=== PATIENT | female | born 1970 | race Caucasian/White ===

== ENCOUNTER → 2018-05-13 15:49 | Outpatient (CLI) | payer OTHER, MEDICAID, SELFPAY ==
--- NOTE | 2018-05-13 | DI.US.S_ITS ---
PROCEDURE: US RENAL COMPLETE INDICATIONS: FAMILY HISTORY POLYCYSTIC KIDNEY TECHNIQUE: Real-time scanning was performed of the kidneys and bladder, with image documentation. COMPARISON: None. FINDINGS: Kidneys: Kidneys are moderately increased in size. Right kidney measures 12.7 cm long; left kidney measures 13.6 cm long. Right renal cortical thickness is 1.5 cm; left renal cortical thickness is 1.5 cm. Renal cortical echotexture is normal. No hydronephrosis or nephrolithiasis but there are numerous cysts involving the renal cortex bilaterally, the largest of which measures up to 12.4 cm on the right and 4.8 cm on the left.. No suspicious solid mass lesions. Bladder: Pre-void bladder volume is 35 mL. Post-void residual is 0 mL. Pre-void images demonstrate no intraluminal masses or stones. On pre-void images, bilateral ureteral jets are noted with color Doppler interrogation. (Of note, ureteral jets may not be detectable in up to 25% of cases due to insufficient differences in specific gravity between ureteral and bladder urine). Miscellaneous: No free pelvic fluid. IMPRESSION: Numerous renal cortical cysts are present involving the cortex of each kidney, enlarging the kidneys bilaterally as discussed above. The bladder was not fully distended for this examination, normal bladder function was seen. Dictated by: Vic Rahman M.D. on 05/13/2018 at 17:19 Approved by: Vic Rahman M.D. on 05/13/2018 at 17:21
== END ==
PROVIDERS: PCP Physician Assistant; Visit Provider Physician Assistant
DX: N28.1 Cyst of kidney, acquired (principal); Z82.71 Family history of polycystic kidney; N28.81 Hypertrophy of kidney
CPT/HCPCS: 76770

== ENCOUNTER → 2019-04-21 13:50 | Outpatient (CLI) | payer OTHER, MEDICAID, SELFPAY ==
[2019-04-21 14:59] LABS: BUN Creatinine Ratio 15.6 (6-22); Blood Urea Nitrogen 14 mg/dL (7-17); Calcium 8.7 mg/dL (8.4-10.2); Carbon Dioxide 27 mmol/L (22-32); Chloride 102 mmol/L (98-107); Cholesterol 172 mg/dL (140-199); Estimated Glomerular Filt Rate > 60.0 mL/min (>60); Glucose 107 mg/dL (70-100); HDL Cholesterol 42 mg/dL (40-60); HEMOLYSIS < 15 (0-50); LDL Cholesterol Calculated 105 mg/dL (<100); Potassium 3.7 mmol/L (3.4-5.1); Sodium 139 mmol/L (137-145); Triglycerides 124 mg/dL (35-150)
[2019-04-21 15:11] LABS: Add Manual Diff / Slide Review NO; Basophils Absolute Auto 100 /uL (0-100); Eosinophils Absolute Auto 100 /uL (0-450); Eosinophils Percent Auto 1.2 % (2-4); Hematocrit 38.3 % (36-46); Hemoglobin 12.6 g/dL (12.0-16.0); Lymphocytes Absolute Auto 1200 /uL (1100-4500); Lymphocytes Percent Auto 20.4 % (25-40); Mean Corpuscular HGB Conc 32.8 % (30-36); Mean Corpuscular Hemoglobin 27.5 PG (26-34); Mean Corpuscular Volume 83.7 fL (80-100); Monocytes Absolute Auto 200 /uL (0-900); Neutrophils Absolute Auto 4300 /uL (1500-7000); Neutrophils Percent Auto 73.4 % (50-75); Platelet Count 288 X10^3/uL (150-400); Red Blood Cell Count 4.58 X10^6/uL (4.0-5.2); Red Cell Distribution Width 14.1 % (11.6-14.8); White Blood Cell Count 5.8 X10^3/uL (4.5-11.0)
[2019-04-21 15:31] LABS: Ferritin 6.3 ng/mL (6.27-137)
[2019-04-21 15:45] LABS: Vitamin B12 187 pg/mL (239-931)
[2019-04-21 16:45] LABS: Iron 66 ug/dL (37-170)
[2019-04-21 16:55] LABS: Percent Iron Saturation 12 % (15-50); Total Iron Binding Capacity 545 ug/dL (265-497)
[2019-04-21 16:58] LABS: Creatinine Urine Random 82.2 mg/dL; Protein (Total) Urine Random 8 mg/dL (0-12); Protein Creatinine Ratio Urine 0.09 GRAM/24H
[2019-04-21 17:03] LABS: Vitamin D 25 Hydroxy (D3) 14.1 ng/mL (30.0-100.0)
[2019-04-21 17:18] LABS: TSH w/ Reflex to FT4 1.89 uIU/mL (0.47-4.68)
[2019-04-24 15:31] LABS: Parathyroid Hormone Int 21 pg/mL (14-64)
[2019-04-28 09:59] LABS: Vitamin B1 14
== END ==
PROVIDERS: PCP Physician Assistant; Referring Provider Student in an Organized Health Care Education/Training Program; Visit Provider Student in an Organized Health Care Education/Training Program
DX: I10 Essential (primary) hypertension (principal); L65.9 Nonscarring hair loss, unspecified; E55.9 Vitamin D deficiency, unspecified; D50.8 Other iron deficiency anemias; N05.9 Unspecified nephritic syndrome with unspecified morphologic changes; D70.9 Neutropenia, unspecified; D63.1 Anemia in chronic kidney disease; R80.9 Proteinuria, unspecified; D50.0 Iron deficiency anemia secondary to blood loss (chronic)
CPT/HCPCS: 36415; 80048; 80061; 82306; 82570; 82607; 82728; 83540; 83550; 83970; 84156; 84207; 84425; 84443; 85025

== ENCOUNTER → 2019-05-07 09:54 | Outpatient (CLI) | payer OTHER, MEDICAID, SELFPAY ==
--- NOTE | 2019-05-07 09:58 | DI.CT.S_ITS ---
PROCEDURE: CT ANGIO HEAD INDICATIONS: Polycystic kidney, unspecified TECHNIQUE: Precontrast 4.5 mm thick angled axial sections acquired from the foramen magnum to the vertex. After the administration of intravenous contrast, 1 mm thick sections acquired through the [place]. Postcontrast 4.5 mm thick sections then re-acquired from the foramen magnum to the vertex. 10 mm thick [id number]-[id number] (MIP) reformats were acquired of the central intracranial vasculature. For radiation dose reduction, the following was used: automated exposure control, adjustment of mA and/or kV according to patient size. COMPARISON: [facility], , RENAL COMPLETE, 05/13/2018, 15:59. FINDINGS: Image quality: Excellent. Anterior circulation: Intracranial internal carotid arteries are normal in size and flow. There is a diminutive right A1 segment, with a corresponding robust left A1 segment. This is considered to be a normal developmental variant of the [place], of typically no clinical consequence. The flow within the paired anterior cerebral arteries is otherwise normal and symmetric. The flow within the middle cerebral arteries is normal and symmetric. The anterior communicating artery is seen. No aneurysms are seen. Posterior circulation: The left vertebral artery is dominant to the right. The right vertebral artery does not clearly join with the left vertebral artery to form the basilar artery the right vertebral artery largely terminates in the right posterior inferior cerebellar artery. There is a prominent right posterior communicating artery seen, with an accompanying diminutive right P1 segment. This is attributed to a type origin of the right posterior cerebral artery, which is considered to be a normal developmental variant of typically no clinical consequence. Flow within the posterior cerebral arteries is normal and symmetric. No aneurysms are seen. CSF spaces: Ventricles are normal in size and shape. Basal cisterns are patent. No extra-axial fluid collections. Brain: No midline shift. No intracranial bleeds or masses. Vincent-white matter interface appears intact. Skull and face: Calvarium and facial bones appear intact, without suspicious lesions. Sinuses: Moderate mucosal thickening is seen within the right maxillary sinus. The visualized paranasal sinuses otherwise appear clear. No abnormal fluid is seen within the mastoid air cells. IMPRESSION: No intracranial aneurysms can be seen. [place] developmental anomalies are seen, which are likely of no clinical consequence. Dictated by: Abhijit Martinez M.D. on 05/07/2019 at 9:34 Approved by: Abhijit Martinez M.D. on 05/07/2019 at 9:37
== END ==
PROVIDERS: PCP Physician Assistant; Referring Provider Student in an Organized Health Care Education/Training Program; Visit Provider Student in an Organized Health Care Education/Training Program
DX: Q61.3 Polycystic kidney, unspecified (principal)
CPT/HCPCS: 70496

== ENCOUNTER 2023-08-07 14:33 | Observation (INO) | payer OTHER, SELFPAY ==
[2023-08-07] VITALS (10 sets, daily range): BP systolic 132–169; BP diastolic 70–91; PULSE 80–88; RESP 16–20; TEMP 36.7–37.1; O2SAT 95–99; BMI 33.3
--- NOTE | 2023-08-07 15:03 | DI.CT.S_ITS ---
PROCEDURE: CT ABDOMEN PELVIS W CON INDICATIONS: LLQ abd pain TECHNIQUE: After the administration of intravenous contrast, axial sections acquired from the lung bases to the pubic symphysis. Coronal and sagittal reformats were performed. For radiation dose reduction, the following was used: automated exposure control, adjustment of mA and/or kV according to patient size. COMPARISON: None. FINDINGS: Image quality: Diagnostic. Lower Chest: No significant findings. ABDOMEN: Liver: Scattered subcentimeter hypoattenuating lesions, too small to characterize by CT but probably small cysts. Gallbladder: Cholelithiasis without wall thickening or adjacent fat stranding to suggest acute cholecystitis. Biliary ducts: No biliary dilation. Pancreas: No ductal dilation. Spleen: Size is within normal limits. Adrenal Glands: No adrenal nodules. Kidneys and Ureters: No hydronephrosis. No solid mass. No complex renal cystic lesion which requires follow up. Polycystic liver disease. Small burden of nonobstructing left-sided nephrolithiasis. Stomach and Bowel, peritoneum: Significant wall thickening of the sigmoid colon. Evidence perforation, with free air associated with a gas and fluid collection in the left adnexa, measuring 2.8 x 2.9 centimeter (series 2, image 76). Additional focus of free air along the posterior margin (series 2, image 72). Significant fat stranding about the pelvis. Ventral Wall: No significant ventral hernia. Abdominal Nodes: Prominent superior rectal lymph nodes. Vessels: There is a dissection of the infrarenal aorta. The dissection flap extends 9 centimeters, terminating above the bifurcation. The dissection flap appears partially calcified. PELVIS: Pelvic Organs: Unremarkable. Bladder: No bladder wall thickening, accounting for underdistention. Pelvic Nodes: No enlarged lymph nodes. Miscellaneous: No inguinal hernias are seen. Bones: No aggressive osseous abnormality. IMPRESSION: Perforation of the sigmoid colon, with a left lower quadrant abscess measuring 2.8 x 2.9 centimeters. This is closely associated with the left ovary. Differential includes severe and late diverticulitis versus a perforating mass, with perforating mass favored given prominent superior rectal lymph nodes. Chronic appearing aortic dissection the infrarenal aorta. This appears chronic. Polycystic kidney and liver disease. Findings discussed with Dr. Navarro at 4:31 p.m. On 08/07/2023. Dictated by: Houston Casey M.D. on 08/07/2023 at 16:27 Approved by: Houston Casey M.D. on 08/07/2023 at 16:34
[2023-08-07 15:13] LABS: Add Manual Diff / Slide Review NO; Basophils Absolute Auto 100 /uL (0-100); Basophils Percent Auto 0.5 % (0-2); Eosinophils Absolute Auto 100 /uL (0-450); Eosinophils Percent Auto 0.9 % (2-4); Hematocrit 35.1 % (36-46); Hemoglobin 11.5 g/dL (12.0-16.0); Lymphocytes Absolute Auto 1200 /uL (1100-4500); Lymphocytes Percent Auto 11.2 % (25-40); Mean Corpuscular HGB Conc 32.8 % (30-36); Mean Corpuscular Hemoglobin 27.4 PG (26-34); Mean Corpuscular Volume 83.8 fL (80-100); Monocytes Absolute Auto 600 /uL (0-900); Monocytes Percent Auto 5.8 % (3-14); Neutrophils Absolute Auto 8400 /uL (1500-7000); Neutrophils Percent Auto 81.6 % (50-75); Platelet Count 321 X10^3/uL (150-400); Red Blood Cell Count 4.19 X10^6/uL (4.0-5.2); Red Cell Distribution Width 13.6 % (11.6-14.8); White Blood Cell Count 10.3 X10^3/uL (4.5-11.0)
--- NOTE | 2023-08-07 15:17 | ED.GENADULT ---
HPI - General Adult General Chief complaint: Abdominal Pain Stated complaint: abd pain, colon pain Time Seen by Provider: 08/07/23 15:02 Source: patient Mode of arrival: Ambulatory History of Present Illness HPI narrative: Patient is a 53-year-old female who is here for evaluation of approximately 3 weeks of abdominal discomfort. She seems to think that it occurs more when she is eating. She states that she has had bowel movements but they have been small and hard. She is tried multiple different doses of laxatives without much improvement. She denies any urinary symptoms. She has not had a colonoscopy up to this point. Is having some nausea but no vomiting. Having subjective fevers. She does feel like her abdomen is bloated. Sometimes she is upper abdominal discomfort for feels that most of the pain is located in the lower abdomen. There is some relief with having bowel movements. No change with urination. No prior abdominal surgeries. Related Data Home Medications Medication Instructions Recorded Confirmed ferrous gluconate 236 mg (27 mg 236 mg PO ##0 03/23/16 iron) tablet hydrocodone 5 mg-acetaminophen 325 1 tab PO PRN ##0 03/23/16 mg tablet ([place]) lisinopril 10 mg tablet 10 mg PO QDAY ##0 03/23/16 Allergies Allergy/AdvReac Type Severity Reaction Status Date / Time Sulfa (Sulfonamide Allergy Hives Verified 08/07/23 14:45 Antibiotics) No Known Allergies Allergy Uncoded 06/20/17 11:50 Review of Systems Review of Systems Narrative: See HPI Patient History Social History Smoking Status: Never smoker Smoking Status: Never smoker Substance Use Type: does not use Exam Initial Vital Signs Initial Vital Signs: Vital Signs Temperature 98.7 F 08/07/23 14:42 Pulse Rate 88 08/07/23 14:42 Respiratory Rate 16 08/07/23 14:42 Blood Pressure 168/90 H 08/07/23 14:42 Pulse Oximetry 99 08/07/23 14:42 Oxygen Delivery Method Room Air 08/07/23 14:42 Const General: cooperative, comfortable and No ill appearing HENMT Head: normal to inspection and normocephalic Resp Effort & Inspection: normal respiratory effort Auscultation: clear to auscultation bilaterally Cardio Rate: regular rate Rhythm: regular rhythm GI Inspection: normal to inspection and non-distended Palpation: soft, No firm, No guarding and No tender Skin General: no rashes or lesions noted Neuro General: patient alert, patient awake and moves all extremities Extrem General: capillary refill normal Course Orders Ordered: ED Orders 08/07/23 15:03 CT abdomen pelvis w con Stat 08/07/23 15:05 Complete Blood Count AUTO DIFF Stat Comprehensive Metabolic Panel Stat Lipase Stat 08/07/23 15:51 Urine Culture Stat Urine Microscopic Stat 08/07/23 16:36 US pelvic limited Stat 08/07/23 17:30 Blood Culture Stat Ondansetron HCl (Ondansetron 4 Mg Odt) 4 mg PO NOW PRN PRN Reason: Nausea And Vomiting Ondansetron HCl (Ondansetron 4 Mg/2 Ml Inj) 4 mg IV NOW PRN PRN Reason: Nausea And Vomiting Discontinued Medications Piperacillin Sod/Tazobactam (Sod 4.5 gm/ Sodium Chloride) 100 mls @ 200 mls/hr IV NOW ONE Stop: 08/07/23 16:43 Last Admin: 08/07/23 17:38 Dose: 200 mls/hr Documented By: KEVIN Metronidazole (Flagyl) 500 mg in 100 mls @ 100 mls/hr IV NOW ONE Stop: 08/07/23 17:41 Vital Signs Vital signs: Vital Signs - 8 hr 08/07/23 14:42 08/07/23 15:54 08/07/23 15:55 Temperature 98.7 F Pulse Rate 88 88 81 Respiratory Rate 16 Blood Pressure 168/90 H Pulse Oximetry 99 97 97 Oxygen Delivery Method Room Air 08/07/23 15:55 08/07/23 16:00 08/07/23 16:00 Temperature Pulse Rate 80 Respiratory Rate 20 17 Blood Pressure 157/82 H 153/70 H Pulse Oximetry 98 Oxygen Delivery Method 08/07/23 16:30 Temperature Pulse Rate 85 Respiratory Rate Blood Pressure Pulse Oximetry 96 Oxygen Delivery Method Medical Decision Making Lab Data Lab results reviewed: Yes I reviewed the patient's lab results. 08/07/23 15:05 08/07/23 15:05 Labs: Lab Results 08/07/23 08/07/23 Range/Units 15:05 15:51 WBC 10.3 (4.5-11.0) X10^3/uL RBC 4.19 (4.0-5.2) X10^6/uL Hgb 11.5 L (12.0-16.0) g/dL Hct 35.1 L (36-46) % MCV 83.8 (80-100) fL MCH 27.4 (26-34) PG MCHC 32.8 (30-36) % RDW 13.6 (11.6-14.8) % Plt Count 321 (150-400) X10^3/uL Neut % (Auto) 81.6 H (50-75) % Lymph % (Auto) 11.2 L (25-40) % [place] % (Auto) 5.8 (3-14) % Eos % (Auto) 0.9 L (2-4) % Baso % (Auto) 0.5 (0-2) % Neut # (Auto) 8400 H (5057-8923) /uL Lymph # (Auto) 1200 (2130-2709) /uL [place] # (Auto) 600 (0-900) /uL Eos # (Auto) 100 (0-450) /uL Baso # (Auto) 100 (0-100) /uL Sodium 138 (137-145) mmol/L Potassium 3.9 (3.4-5.1) mmol/L Chloride 103 (98-107) mmol/L Carbon Dioxide 27 (22-32) mmol/L BUN 14 (7-17) mg/dL Creatinine 0.81 (0.52-1.04) mg/dL Estimated GFR > 60 (>60) mL/min BUN/Creatinine Ratio 17.3 (6-22) Glucose 99 (70-100) mg/dL Calcium 8.7 (8.4-10.2) mg/dL Total Bilirubin 0.7 (0.2-1.3) mg/dL AST 17 (14-36) IU/L ALT 13 (<35) IU/L Alkaline Phosphatase 74 (38-126) U/L Total Protein 7.3 (6.3-8.2) g/dL Albumin 4.1 (3.5-5.0) g/dL Globulin 3.2 (1.7-4.1) g/dL Albumin/Globulin Ratio 1.3 (1.0-2.8) Lipase 100 (23-300) U/L Urine RBC 0-1/hpf (0-5/HPF) Urine WBC 10-30/hpf H (0-5/HPF) Ur Squamous Epith Cells 0-1 /hpf (0-5/HPF) Urine Bacteria Moderate (10-30) H (None) Ur Culture Indicated? Specimen cultured Vol Urine Centrifuged 10ml (spun) Point of Care Testing Test Results Negative Urine Dip Bedside Urine Glucose Negative Bedside Urine Bilirubin - Negative Bedside Urine Ketone ++ 40 Urine Specific [place] 1.020 Bedside Urine Occult Blood + Bedside Urine pH 5.5 Bedside Urine Protein +/- 15 Bedside Urine Urobilinogen - Negative Bedside Urine Nitrite - Negative Bedside Urine Leukocytes + 70 Esterase Point of care testing: Point of Care Testing Test Results Negative Urine Dip Bedside Urine Glucose Negative Bedside Urine Bilirubin - Negative Bedside Urine Ketone ++ 40 Urine Specific [place] 1.020 Bedside Urine Occult Blood + Bedside Urine pH 5.5 Bedside Urine Protein +/- 15 Bedside Urine Urobilinogen - Negative Bedside Urine Nitrite - Negative Bedside Urine Leukocytes + [address] scan - abdomen/pelvis: Radiologist's Impression: PROCEDURE: CT ABDOMEN PELVIS W CON INDICATIONS: LLQ abd pain TECHNIQUE: After the administration of intravenous contrast, axial sections acquired from the lung bases to the pubic symphysis. Coronal and sagittal reformats were performed. For radiation dose reduction, the following was used: automated exposure control, adjustment of mA and/or kV according to patient size. COMPARISON: None. FINDINGS: Image quality: Diagnostic. Lower Chest: No significant findings. ABDOMEN: Liver: Scattered subcentimeter hypoattenuating lesions, too small to characterize by CT but probably small cysts. Gallbladder: Cholelithiasis without wall thickening or adjacent fat stranding to suggest acute cholecystitis. Biliary ducts: No biliary dilation. Pancreas: No ductal dilation. Spleen: Size is within normal limits. Adrenal Glands: No adrenal nodules. Kidneys and Ureters: No hydronephrosis. No solid mass. No complex renal cystic lesion which requires follow up. Polycystic liver disease. Small burden of nonobstructing left-sided nephrolithiasis. Stomach and Bowel, peritoneum: Significant wall thickening of the sigmoid colon. Evidence perforation, with free air associated with a gas and fluid collection in the left adnexa, measuring 2.8 x 2.9 centimeter (series 2, image 76). Additional focus of free air along the posterior margin (series 2, image 72). Significant fat stranding about the pelvis. Ventral Wall: No significant ventral hernia. Abdominal Nodes: Prominent superior rectal lymph nodes. Vessels: There is a dissection of the infrarenal aorta. The dissection flap extends 9 centimeters, terminating above the bifurcation. The dissection flap appears partially calcified. PELVIS: Pelvic Organs: Unremarkable. Bladder: No bladder wall thickening, accounting for underdistention. Pelvic Nodes: No enlarged lymph nodes. Miscellaneous: No inguinal hernias are seen. Bones: No aggressive osseous abnormality. IMPRESSION: Perforation of the sigmoid colon, with a left lower quadrant abscess measuring 2.8 x 2.9 centimeters. This is closely associated with the left ovary. Differential includes severe and late diverticulitis versus a perforating mass, with perforating mass favored given prominent superior rectal lymph nodes. Chronic appearing aortic dissection the infrarenal aorta. This appears chronic. Polycystic kidney and liver disease. US - CHIEF MEDICAL PHYSICIST: Radiologist's Impression: PROCEDURE: US PELVIC LIMITED INDICATIONS: LLQ mass US rec by rads for eval for ovary TECHNIQUE: Real-time transabdominal scanning was performed of the pelvic organs, with image documentation. Doppler and color flow imaging was also performed to evaluate arterial and venous blood flow to the bilateral ovaries. COMPARISON: Same-day CT abdomen pelvis are 10/30/2023. FINDINGS: The right ovary is not evaluated. The left ovary is poorly visualized. It measures approximately 4.7 x 3.7 x 3.5 cm with a calculated volume of 32 mL. There is a hypoechoic structure in the left adnexal region measuring 2.2 x 2.1 x 2.4 centimeter, possibly corresponding to abscess seen on same day CT. Arterial and venous Doppler color flow to the left ovary is within normal limits. IMPRESSION: Limited views of the left ovary. No definite sonographic evidence of left ovarian torsion. Left adnexal fluid collection measuring up to 2.4 centimeters likely corresponding to pelvic abscess seen on prior same day CT. Right ovary was not evaluated. MDM Narrative Medical decision making narrative: Patient has a relatively benign exam and relatively benign vital signs although CT scan shows what appears to be perforated diverticulitis with an abscess. Discussed the case with Dr. Flores. Started on antibiotics. We will admit for further evaluation treatment. Discharge Plan Departure Patient Disposition: Admitted As Inpatient Clinical Impression: Diverticulitis of intestine with perforation Admit Date/Time: 08/07/23 17:56 Admit Provider: Heather Flores
[2023-08-07 15:33] LABS: Alanine Aminotransferase 13 IU/L (<35); Albumin 4.1 g/dL (3.5-5.0); Albumin Globulin Ratio 1.3 (1.0-2.8); Alkaline Phosphatase 74 U/L (38-126); Aspartate Aminotransferase 17 IU/L (14-36); BUN Creatinine Ratio 17.3 (6-22); Bilirubin Total 0.7 mg/dL (0.2-1.3); Blood Urea Nitrogen 14 mg/dL (7-17); Calcium 8.7 mg/dL (8.4-10.2); Carbon Dioxide 27 mmol/L (22-32); Chloride 103 mmol/L (98-107); Estimated Glomerular Filt Rate > 60 mL/min (>60); Globulin 3.2 g/dL (1.7-4.1); Glucose 99 mg/dL (70-100); HEMOLYSIS < 15 (0-50); Lipase 100 U/L (23-300); Potassium 3.9 mmol/L (3.4-5.1); Sodium 138 mmol/L (137-145); Total Protein 7.3 g/dL (6.3-8.2)
--- NOTE | 2023-08-07 16:36 | DI.US.S_ITS ---
PROCEDURE: US PELVIC LIMITED INDICATIONS: LLQ mass US rec by rads for eval for ovary TECHNIQUE: Real-time transabdominal scanning was performed of the pelvic organs, with image documentation. Doppler and color flow imaging was also performed to evaluate arterial and venous blood flow to the bilateral ovaries. COMPARISON: Same-day CT abdomen pelvis are 10/30/2023. FINDINGS: The right ovary is not evaluated. The left ovary is poorly visualized. It measures approximately 4.7 x 3.7 x 3.5 cm with a calculated volume of 32 mL. There is a hypoechoic structure in the left adnexal region measuring 2.2 x 2.1 x 2.4 centimeter, possibly corresponding to abscess seen on same day CT. Arterial and venous Doppler color flow to the left ovary is within normal limits. IMPRESSION: Limited views of the left ovary. No definite sonographic evidence of left ovarian torsion. Left adnexal fluid collection measuring up to 2.4 centimeters likely corresponding to pelvic abscess seen on prior same day CT. Right ovary was not evaluated. We strive to produce accurate, complete, and clear reports of imaging services. To assist us in improving patient care, this report was composed using standard report templates and voice recognition software. Therefore, it may contain abnormal punctuation, insertions and/or omissions. Occasional wrong-word or sound-alike substitutions may occur. Though we review the report and make efforts to correct it, we do recommend that the report be read carefully in proper context to recognize any text inaccuracies. Approved by: Herlinda Cabral M.D.,Ph.D. on 08/07/2023 at 16:35
[2023-08-07 16:45] LABS: Bacteria Urine Moderate (10-30); Culture Indicated Urine Specimen Cultured; RBC Urine 0-1/HPF (0-5/HPF); Squamous Epithelial Cell Urine 0-1 /HPF (0-5/HPF); Urine Volume 10mL (spun); WBC Urine 10-30/HPF (0-5/HPF)
[2023-08-07] MEDS: PIPERACILLIN/TAZO 4.5 GM in SODIUM CHLORIDE 0.9% 100 ML IV (17:38)
[2023-08-07] MEDS: metroNIDAZOLE 500 MG/100 ML PIGGYBACK 100 MG IV (18:15)
[2023-08-07] MEDS: IBUPROFEN 600 MG TABLET PO (19:23)
[2023-08-07] MEDS: ACETAMINOPHEN 325 MG TABLET 650 MG PO (19:24)
[2023-08-07] MEDS: DEXTROSE 5%-0.45% NS 1,000 ML 100 ML IV (19:27)
[2023-08-07] MEDS: HEPARIN 5,000 UNIT/ML VIAL 5000 UNIT SUBCUT (20:37)
[2023-08-07] MEDS: GABAPENTIN 300 MG CAPSULE PO (20:37)
[2023-08-07] MEDS: CIPROFLOXACIN 250 MG TABLET 500 MG PO (20:37)
--- NOTE | 2023-08-07 23:48 | PC.NURSE ---
Patient is alert and oriented. Breath sounds diminished at bases but otherwise CTA with RA sat of 96%. HRR. Denied nausea. BT present and abdomen is soft and non-tender. Denied pain but states prior to admit would have pressure like discomfort increased with urination. 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 Refused SCD's after educated on purpose but states she is up frequently and did not feel she needs them at present time; is getting SQ Heparin. Fall risk score is low.
[2023-08-08 02:04] VITALS: BP 103/54; PULSE 67; RESP 16; TEMP 36; O2SAT 99
[2023-08-08] MEDS: metroNIDAZOLE 500 MG/100 ML PIGGYBACK 100 MG IV (02:11)
[2023-08-08 06:24] VITALS: BP 114/68; PULSE 69; RESP 19; TEMP 36.4; O2SAT 100
[2023-08-08] MEDS: CIPROFLOXACIN 250 MG TABLET 500 MG PO (06:33)
[2023-08-08 06:35] LABS: Add Manual Diff / Slide Review NO; Basophils Absolute Auto 0 /uL (0-100); Basophils Percent Auto 0.6 % (0-2); Eosinophils Absolute Auto 100 /uL (0-450); Eosinophils Percent Auto 1.6 % (2-4); Hematocrit 33.2 % (36-46); Hemoglobin 10.8 g/dL (12.0-16.0); Lymphocytes Absolute Auto 1000 /uL (1100-4500); Lymphocytes Percent Auto 13.7 % (25-40); Mean Corpuscular HGB Conc 32.6 % (30-36); Mean Corpuscular Hemoglobin 27.3 PG (26-34); Mean Corpuscular Volume 83.7 fL (80-100); Monocytes Absolute Auto 600 /uL (0-900); Monocytes Percent Auto 7.3 % (3-14); Neutrophils Absolute Auto 5800 /uL (1500-7000); Neutrophils Percent Auto 76.8 % (50-75); Platelet Count 290 X10^3/uL (150-400); Red Blood Cell Count 3.96 X10^6/uL (4.0-5.2); Red Cell Distribution Width 13.6 % (11.6-14.8); White Blood Cell Count 7.6 X10^3/uL (4.5-11.0)
[2023-08-08] MEDS: DEXTROSE 5%-0.45% NS 1,000 ML 100 ML IV (06:36)
[2023-08-08 07:51] VITALS: BP 113/68; PULSE 70; RESP 21; TEMP 36.5; O2SAT 99
[2023-08-08 08:08] VITALS: BP 113/68
[2023-08-08] MEDS: lisinopriL 10 MG TABLET PO (08:08)
[2023-08-08] MEDS: IBUPROFEN 600 MG TABLET PO (08:09)
[2023-08-08] MEDS: ACETAMINOPHEN 325 MG TABLET 650 MG PO (08:09)
[2023-08-08] MEDS: HEPARIN 5,000 UNIT/ML VIAL 5000 UNIT SUBCUT (08:09)
--- NOTE | 2023-08-08 10:22 | PC.NURSE ---
Pt is dressed and ready to discharge home. IV has been removed. Pt has her own vehicle here at the hospital and will be driving herself. Went over d/c instructions with Pt - discussed d/c meds, time of last dose, reviewed stroke education, no driving while taking narcotics, drink plenty of fluids to prevent constipation or dehydration, watch for worsening of symptoms and come to the hospital or see your physician if that occurs and she is to schedule a follow up colonoscopy for 2 months from now. Pt denied further questions and was taken out via w/c by [employer] to POV with all belongings.
--- NOTE | 2023-08-08 10:28 | P.HP_ITS ---
History of Present Illness History of Present Illness Date Patient Seen: 08/08/23 Time Patient Seen: 10:28 Chief complaint: abd pain, colon pain Narrative: Three weeks of abdominal pain with CTscan showing perforated diverticulitis with small pelvic abscess. Polycystic kidney and left ovarian cyst. Most pain is with defecation, o/w low grade pelvic discomfort. No fevers or chills. First episode. Has not had a colonoscopy. [facility] Social History household members: none Smoking Status: Never smoker alcohol intake: former Meds Home Medications and Allergies Home Medications Medication Instructions Recorded Confirmed Type lisinopril 20 1 tab PO DAILY 08/07/23 08/07/23 History mg-hydrochlorothiazide 12.5 mg tablet ciprofloxacin HCl 250 mg tablet 500 mg (2 x 250 mg) PO 0700,2100 08/08/23 Rx #10 tabs metronidazole 500 mg tablet 500 mg PO Q12H #10 tabs 08/08/23 Rx oxycodone 5 mg tablet 5 mg PO 1-2XD PRN Pain, Moderate 08/08/23 Rx (4-6) #20 tabs Allergies Allergy/AdvReac Type Severity Reaction Status Date / Time Sulfa (Sulfonamide Allergy Hives Verified 08/07/23 14:45 Antibiotics) No Known Allergies Allergy Uncoded 06/20/17 11:50 Review of Systems Review of Systems ROS: Yes All systems reviewed with the patient and are negative except as otherwise documented Exam Vital Signs (past 8 hours): - 08/08/23 06:24 08/08/23 07:51 08/08/23 08:08 Temperature 97.5 F L 97.7 F Pulse Rate 69 70 Respiratory Rate 19 21 Blood Pressure 114/68 113/68 113/68 Pulse Oximetry 100 99 Oxygen Flow Rate 0 0 Oxygen Delivery Method Room Air Oxygen Flow Rate 0 Const General: cooperative, healthy appearing and comfortable Nutritional Appearance: average body habitus HENMT Head: normocephalic and atraumatic Ears: hearing grossly normal bilaterally Eyes Sclera: sclerae normal Neck Neck: trachea midline and No JVD Resp Effort & Inspection: normal respiratory effort and able to speak in complete sentences Cardio Rate: regular rate Rhythm: regular rhythm GI Inspection: non-distended Palpation: soft and tender (lower abdominal tenderness to palpation) Skin General: turgor normal and No atrophy Neuro General: patient alert, patient awake and patient oriented x3 Speech: speech normal Extrem General: full ROM Psych Appearance: grossly normal Mental Status: mental status grossly normal Attitude: cooperative Judgment: judgment good Objective Labs 08/08/23 05:00 08/07/23 15:05 Labs: Laboratory Results - last 24 hr 08/07/23 08/07/23 08/08/23 15:05 15:51 05:00 WBC 10.3 7.6 RBC 4.19 3.96 L Hgb 11.5 L 10.8 L Hct 35.1 L 33.2 L MCV 83.8 83.7 MCH 27.4 27.3 MCHC 32.8 32.6 RDW 13.6 13.6 Plt Count 321 290 Neut % (Auto) 81.6 H 76.8 H Lymph % (Auto) 11.2 L 13.7 L [place] % (Auto) 5.8 7.3 Eos % (Auto) 0.9 L 1.6 L Baso % (Auto) 0.5 0.6 Neut # (Auto) 8400 H 5800 Lymph # (Auto) 1200 1000 L [place] # (Auto) 600 600 Eos # (Auto) 100 100 Baso # (Auto) 100 0 Sodium 138 Potassium 3.9 Chloride 103 Carbon Dioxide 27 BUN 14 Creatinine 0.81 Estimated GFR > 60 BUN/Creatinine Ratio 17.3 Glucose 99 Calcium 8.7 Total Bilirubin 0.7 AST 17 ALT 13 Alkaline Phosphatase 74 Total Protein 7.3 Albumin 4.1 Globulin 3.2 Albumin/Globulin Ratio 1.3 Lipase 100 Urine RBC 0-1/hpf Urine WBC 10-30/hpf H Ur Squamous Epith Cells 0-1 /hpf Urine Bacteria Moderate (10-30) H Ur Culture Indicated? Specimen cultured Vol Urine Centrifuged 10ml (spun) Assessment & Plan Assessment & Plan narrative: Perforated diverticulitis with pelvic abscess, appears to be approaching recovery w/o intervention. 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 Plan: Cipro and flagyl po for 5 days, follow up 6-8 weeks for screening colonoscopy. No diet changes or activity restrictions. Time Spent With Patient Time with patient: 30 to 49 minutes with 50% spent counseling/coordinating care
--- NOTE | 2023-08-08 10:35 | P.DS_ITS ---
History of Present Illness History of Present Illness Date Patient Seen: 08/08/23 Time Patient Seen: 10:35 Chief complaint: abd pain, colon pain Narrative: Three weeks of abdominal pain with CTscan showing perforated diverticulitis with small pelvic abscess. Polycystic kidney and left ovarian cyst. Most pain is with defecation, o/w low grade pelvic discomfort. No fevers or chills. First episode. Has not had a colonoscopy. Discharge Providers Provider Date of admission: 08/07/23 17:56 Discharge Date: 08/08/23 Primary care physician: Doctor Jass MD Discharge provider: Heather Flores MD Summary Hospital Course Discharge Diagnosis: perforated diverticulitis with pelvic abscess recovering w/o intervention Hospital Course: observation with IV and po antibiotics. Vitals and labs remain normal. Pain actually improved. Status at Discharge Cognitive/behavioral status at discharge: at baseline, oriented Functional status at discharge: independent ambulation Overall status at discharge: patient is progressing back to baseline Time Spent with Patient Time spent: Greater than 30 minutes Exam Vital Signs (past 8 hours): - 08/08/23 06:24 08/08/23 07:51 08/08/23 08:08 Temperature 97.5 F L 97.7 F Pulse Rate 69 70 Respiratory Rate 19 21 Blood Pressure 114/68 113/68 113/68 Pulse Oximetry 100 99 Oxygen Flow Rate 0 0 Oxygen Delivery Method Room Air Oxygen Flow Rate 0 Narrative Exam Narrative: abdomen tender to palpation in lower area. No acute abdomen. Objective Labs 08/08/23 05:00 08/07/23 15:05 Labs: Laboratory Results - last 24 hr 08/07/23 08/07/23 08/08/23 15:05 15:51 05:00 WBC 10.3 7.6 RBC 4.19 3.96 L Hgb 11.5 L 10.8 L Hct 35.1 L 33.2 L MCV 83.8 83.7 MCH 27.4 27.3 MCHC 32.8 32.6 RDW 13.6 13.6 Plt Count 321 290 Neut % (Auto) 81.6 H 76.8 H Lymph % (Auto) 11.2 L 13.7 L [facility] % (Auto) 5.8 7.3 Eos % (Auto) 0.9 L 1.6 L Baso % (Auto) 0.5 0.6 Neut # (Auto) 8400 H 5800 Lymph # (Auto) 1200 1000 L [facility] # (Auto) 600 600 Eos # (Auto) 100 100 Baso # (Auto) 100 0 Sodium 138 Potassium 3.9 Chloride 103 Carbon Dioxide 27 BUN 14 Creatinine 0.81 Estimated GFR > 60 BUN/Creatinine Ratio 17.3 Glucose 99 Calcium 8.7 Total Bilirubin 0.7 AST 17 ALT 13 Alkaline Phosphatase 74 Total Protein 7.3 Albumin 4.1 Globulin 3.2 Albumin/Globulin Ratio 1.3 Lipase 100 Urine RBC 0-1/hpf Urine WBC 10-30/hpf H Ur Squamous Epith Cells 0-1 /hpf Urine Bacteria Moderate (10-30) H Ur Culture Indicated? Specimen cultured Vol Urine Centrifuged 10ml (spun) PFSH Social History household members: none Smoking Status: Never smoker alcohol intake: former Discharge Assessment & Plan Assessment and Plan Assessment: Perforated diverticulitis with pelvic abscess Plan of Treatment: Five days of Cipro and Flagyl Needs screening colonoscopy no sooner than 6-8 weeks. Discharge Plan Discharge Plan Patient Disposition: Home Discharge orders & Medications Prescriptions: New ciprofloxacin HCl 250 mg Tablet 500 mg PO 0700,2100 Qty: 10 0RF oxycodone 5 mg Tablet 5 mg PO 1-2XD PRN (Reason: Pain, Moderate (4-6)) Qty: 20 0RF metronidazole 500 mg tablet 500 mg PO Q12H Qty: 10 0RF Continued lisinopril-hydrochlorothiazide 20-12.5 mg tablet 1 tab PO DAILY Follow up/Referrals: Heather Flores MD [Physician] - (Needs to schedule a colonoscopy no sooner than 2 months (recovering from diverticulitis)) Doctor Regan MD [Primary Care Provider] - Diet/Activity/Treatments Diet: Diet as Tolerated Skin/Wound/Dressing Care Report to your healthcare provider any signs of infection, such as:: chills, fever, night sweats and increased pain Visit Report/Discharge Packet Instructions: DI for Diverticulitis, DI for Prescription Opioid Use, Oxycodone, Ciprofloxacin, Metronidazole Stand Alone Forms: Patient Portal/API, Stroke Signs & Symptoms Discharge Data Primary Care Provider: Doctor Jass
--- NOTE | 2023-08-08 10:43 | CM.DANOTE ---
Discharge Planning/Care Management CM Discharge Assessment Start: 08/08/23 10:39 Gilda: Status: Discharge Protocol: Document 08/08/23 10:39 RAJWINDER (Rec: 08/08/23 10:42 [id number] [id number]) Discharge Planning Assessment Assigned Engineering Technician DANITA Marie DPJOSS/Assigned Designee Name nila Otto Contact Information [phone] Advance Directives? No History Provided By Patient,Medical Record Prior Living Arrangements House Household Members none Type of transporation used prior to Drives own vehicle admit Independent with ADL's Yes Is patient alert and oriented? Yes Barriers to Discharge No Comment Met briefly with patient as MOISES Wilcox was completing DC instructions. Patient has been discharged home with close outpatient follow up recommended. Patient indp and active and at her functional baseline upon discharge today, no needs from this CM team. Discharge Plan Home Transportation Arrangement Self Referrals Initiated None needed
--- NOTE | 2023-09-05 13:11 | PC.NURSE ---
late entry- per RN IV medication flagyl was completed and DC'd at 1900 prior to transfer to admit bed.
== END 2023-08-08 10:26 | disposition home or self-care (01) ==
LOC: ED 17:49 → AC 08-08 07:44
PROVIDERS: Admitting Provider Surgery; Emergency Provider Emergency Medicine; Referring Provider Emergency Medicine; Visit Provider Surgery
DX: K57.20 Diverticulitis of large intestine with perforation and abscess without bleeding (principal); K59.00 Constipation, unspecified; Q61.3 Polycystic kidney, unspecified; N83.202 Unspecified ovarian cyst, left side
CPT/HCPCS: 36415; 74177; 76857; 80053; 81003; 81015; 81025; 83690; 85025; 87040; 87077; 87086; 87147; 87186; 96365; 96366; 96367; 96372; 99232; 99284; 99285; G0378; J1644; J2543; Q9967

== ENCOUNTER 2023-08-31 11:21 | Emergency (ER) | payer OTHER, SELFPAY ==
[2023-08-07 19:03] VITALS: BMI 33.3
[2023-08-31] VITALS (12 sets, daily range): BP systolic 143–171; BP diastolic 76–85; PULSE 52–94; RESP 10–30; TEMP 36.6; O2SAT 95–99; BMI 36.5
--- NOTE | 2023-08-31 11:36 | ED.GENADULT ---
HPI - General Adult General Chief complaint: Abdominal Pain Stated complaint: ABD Pain Time Seen by Provider: 08/31/23 11:32 Source: patient Mode of arrival: Ambulatory Limitations: no limitations History of Present Illness HPI narrative: 53-year-old female who was seen here in the emergency department approximately 3 weeks ago and diagnosed with diverticulitis with a perforation and abscess. Was admitted to the hospital overnight by General surgery. No surgery during her admission. Was sent home on antibiotics. Has completed the course of antibiotics. Since that time has had increase in discomfort. Has had very little bowel movements. Feels like her abdomen is distended. Feels like there is something blocking her stool from exiting. No fevers. No vomiting. Related Data Home Medications Medication Instructions Recorded Confirmed lisinopril 20 1 tab PO DAILY 08/07/23 08/07/23 mg-hydrochlorothiazide 12.5 mg tablet Previous Rx's Medication Instructions Recorded ciprofloxacin HCl 250 mg tablet 500 mg (2 x 250 mg) PO 0700,2100 08/08/23 #10 tabs metronidazole 500 mg tablet 500 mg PO Q12H #10 tabs 08/08/23 oxycodone 5 mg tablet 5 mg PO 1-2XD PRN Pain, Moderate 08/08/23 (4-6) #20 tabs peg 3350-electrolytes 236 240 ml PO Q10M #4,000 mL 08/31/23 gram-22.74 gram-6.74 gram-5.86 gram solution (Golytely) Allergies Allergy/AdvReac Type Severity Reaction Status Date / Time Sulfa (Sulfonamide Allergy Hives Verified 08/07/23 14:45 Antibiotics) No Known Allergies Allergy Uncoded 06/20/17 11:50 Review of Systems Constitutional Constitutional: Reports system reviewed and no additional complaints, except as documented Gastrointestinal Gastrointestinal: Reports system reviewed and no additional complaints, except as documented Genitourinary Genitourinary: Reports system reviewed and no additional complaints, except as documented Integumentary/Breasts Skin/Breast: Reports system reviewed and no additional complaints, except as documented Patient History Social History household members: none Smoking Status: Never smoker alcohol intake: former Smoking Status: Never smoker Substance Use Type: does not use Exam Initial Vital Signs Initial Vital Signs: Vital Signs Pulse Rate 94 H 08/31/23 11:31 Pulse Oximetry 96 08/31/23 11:31 Const General: cooperative and healthy appearing [facility] Head: normal to inspection and normocephalic GI Inspection: distended Palpation: No firm, No guarding and tender Skin General: no rashes or lesions noted Neuro General: patient awake Course Orders Ordered: ED Orders 08/31/23 11:35 Urine Microscopic Stat 08/31/23 11:36 CT abdomen pelvis w con Stat 08/31/23 11:57 Complete Blood Count AUTO DIFF Stat Comprehensive Metabolic Panel Stat Lipase Stat Discontinued Medications Sodium Chloride (Normal Saline 0.9%) 1,000 mls @ 1,000 mls/hr IV BOLUS ONE Stop: 08/31/23 12:34 Last Infusion: 08/31/23 13:32 Dose: Infused Documented By: Admin: 08/31/23 12:00 Dose: 1,000 mls/hr Documented By: SHERRIE Lactulose (Lactulose 20 Gm/30 Ml Solution) 20 gm PO NOW ONE Stop: 08/31/23 13:41 Vital Signs Vital signs: Vital Signs - 8 hr 08/31/23 11:31 08/31/23 11:32 08/31/23 11:32 Temperature Pulse Rate 94 H 89 Respiratory Rate Blood Pressure 147/81 H Pulse Oximetry 96 97 Oxygen Delivery Method 08/31/23 11:38 08/31/23 12:24 08/31/23 12:25 Temperature 97.8 F Pulse Rate 94 H 52 L Respiratory Rate 16 Blood Pressure 147/81 H 144/82 H Pulse Oximetry 96 Oxygen Delivery Method Room Air 08/31/23 12:25 08/31/23 12:30 08/31/23 12:30 Temperature Pulse Rate 52 L 74 Respiratory Rate 10 L Blood Pressure 143/85 H Pulse Oximetry 97 Oxygen Delivery Method 08/31/23 12:50 08/31/23 12:50 08/31/23 12:58 Temperature Pulse Rate 78 Respiratory Rate 30 H Blood Pressure 153/76 H 171/77 H Pulse Oximetry Oxygen Delivery Method 08/31/23 12:58 08/31/23 13:00 08/31/23 13:30 Temperature Pulse Rate 77 76 78 Respiratory Rate 12 18 24 Blood Pressure Pulse Oximetry 95 99 Oxygen Delivery Method Medical Decision Making Medical Records Medical records reviewed: Yes I reviewed the patient's medical records. Lab Data Lab results reviewed: Yes I reviewed the patient's lab results. 08/31/23 11:57 08/31/23 11:57 Labs: Lab Results 08/31/23 08/31/23 Range/Units 11:35 11:57 WBC 9.3 (4.5-11.0) X10^3/uL RBC 3.72 L (4.0-5.2) X10^6/uL Hgb 10.2 L (12.0-16.0) g/dL Hct 30.6 L (36-46) % MCV 82.4 (80-100) fL MCH 27.5 (26-34) PG MCHC 33.3 (30-36) % RDW 13.7 (11.6-14.8) % Plt Count 310 (150-400) X10^3/uL Neut % (Auto) 81.5 H (50-75) % Lymph % (Auto) 11.0 L (25-40) % [place] % (Auto) 5.8 (3-14) % Eos % (Auto) 1.0 L (2-4) % Baso % (Auto) 0.7 (0-2) % Neut # (Auto) 7600 H (9086-8001) /uL Lymph # (Auto) 1000 L (1041-5145) /uL [place] # (Auto) 500 (0-900) /uL Eos # (Auto) 100 (0-450) /uL Baso # (Auto) 100 (0-100) /uL Sodium 136 L (137-145) mmol/L Potassium 3.6 (3.4-5.1) mmol/L Chloride 104 (98-107) mmol/L Carbon Dioxide 24 (22-32) mmol/L BUN 16 (7-17) mg/dL Creatinine 0.74 (0.52-1.04) mg/dL Estimated GFR > 60 (>60) mL/min BUN/Creatinine Ratio 21.6 (6-22) Glucose 95 (70-100) mg/dL Calcium 8.5 (8.4-10.2) mg/dL Total Bilirubin 0.6 (0.2-1.3) mg/dL AST 17 (14-36) IU/L ALT 11 (<35) IU/L Alkaline Phosphatase 66 (38-126) U/L Total Protein 6.9 (6.3-8.2) g/dL Albumin 3.5 (3.5-5.0) g/dL Globulin 3.4 (1.7-4.1) g/dL Albumin/Globulin Ratio 1.0 (1.0-2.8) Lipase 78 (23-300) U/L Urine RBC 1-5/hpf (0-5/HPF) Urine WBC 1-5/hpf (0-5/HPF) Ur Squamous Epith Cells 1-5 /hpf (0-5/HPF) Urine Bacteria Occasional (0-1) (None) Urine Mucus 1+ H (Negative) Ur Culture Indicated? Cult not indicated Vol Urine Centrifuged 10ml (spun) Urine Dip Bedside Urine Glucose Negative Bedside Urine Bilirubin - Negative Bedside Urine Ketone +/- 5 Urine Specific [place] 1.025 Bedside Urine Occult Blood + Bedside Urine pH 5.5 Bedside Urine Protein +/- 15 Bedside Urine Urobilinogen - Negative Bedside Urine Nitrite - Negative Bedside Urine Leukocytes - Negative Esterase Point of care testing: Urine Dip Bedside Urine Glucose Negative Bedside Urine Bilirubin - Negative Bedside Urine Ketone +/- 5 Urine Specific [place] 1.025 Bedside Urine Occult Blood + Bedside Urine pH 5.5 Bedside Urine Protein +/- 15 Bedside Urine Urobilinogen - Negative Bedside Urine Nitrite - Negative Bedside Urine Leukocytes - Negative Esterase Imaging Data CT scan - abdomen/pelvis: Radiologist's Impression: PROCEDURE: CT ABDOMEN PELVIS W CON INDICATIONS: hx of diverticulitis with abd distention TECHNIQUE: After the administration of intravenous contrast, axial sections acquired from the lung bases to the pubic symphysis. Coronal and sagittal reformats were performed. For radiation dose reduction, the following was used: automated exposure control, adjustment of mA and/or kV according to patient size. COMPARISON: [facility], CT, CT ABDOMEN PELVIS W CON, 08/07/2023, 15:45. FINDINGS: Image quality: Diagnostic. Lower Chest: No significant findings. ABDOMEN: Liver: No solid mass. Stable hepatic cysts and subcentimeter hypodensities. Gallbladder: Cholelithiasis without CT evidence of acute cholecystitis. Biliary ducts: No biliary dilation. Pancreas: No ductal dilation. Spleen: Size is within normal limits. Adrenal Glands: No adrenal nodules. Kidneys and Ureters: No hydronephrosis. No solid mass. No complex renal cystic lesion which requires follow up. Multiple bilateral renal cysts including a large exophytic cyst at the inferior pole the right kidney is stable compared to prior. Evaluation for stones is limited secondary to contrast within the collecting systems. Stomach and Bowel: Redemonstration of diverticulosis with wall thickening of the sigmoid colon, surrounding inflammatory changes and findings consistent with contained perforation with fluid collection in the left adnexa measuring approximately 2.6 x 2.4 centimeters, similar to prior. Significant stool burden is seen. Peritoneum: Trace free fluid is likely reactive. No extraluminal gas is seen. Ventral Wall: No significant ventral hernia. Abdominal Nodes: No retroperitoneal or mesenteric adenopathy by size criteria. Vessels: Similar appearance of infrarenal aortic dissection extending into the proximal left common iliac artery. PELVIS: Pelvic Organs: Unremarkable. Bladder: No bladder wall thickening, accounting for underdistention. Pelvic Nodes: No enlarged lymph nodes. Miscellaneous: No inguinal hernias are seen. Bones: No aggressive osseous abnormality. Degenerative changes of the spine IMPRESSION: Overall, similar appearance of sigmoid diverticulitis with perforation and abscess within the left adnexa closely associated with the left ovary. Underlying mass is also in the differential and colonoscopy once acute inflammation has resolved is recommended. Significant stool burden throughout the colon, consistent with constipation. Chronic appearing aortic dissection of the infrarenal aorta is similar in appearance to prior. Polycystic kidney and liver disease is redemonstrated. MDM Narrative Medical decision making narrative: CT scan today his unchanged from prior with regard to the diverticulitis in the abscess but she has significant constipation/stool burden. Patient does not have leukocytosis. Not hypotensive. Not febrile. Does not have a surgical abdomen. Discussed the case with Dr. Flores who was on-call for General surgery. She reviewed the CT scan. There was some question of whether or not the patient's symptoms are related to the constipation versus continued diverticulitis. Given that the abscess has not worsened our suspicion that this is more of constipation. No emergent surgical condition found. Had a long discussion with the patient regarding her symptoms. She would like to be discharged home in order to do the bowel regimen/bowel prep at home. She understands she may need to return if her symptoms worsen. Discharge Plan Departure Patient Disposition: Home Clinical Impression: Abdominal pain, Constipation Instructions: DI for Constipation Activity Restrictions/Additional Instructions: I do recommend that you continue with the bowel regimen like we discussed. You can try [id number] enemas. You can also try MiraLax and or magnesium citrate. Contact your primary care doctor for a follow-up. Return to the emergency department for new or worsening symptoms. Has not incidental finding on the CT scan you do have quite a bit of renal/kidney cysts. You should talk with your primary doctor about any potential follow-up with regard to this. Prescriptions: New peg 3350-electrolytes [Golytely] 236-22.74-6.74 -5.86 gram recon soln 240 ml PO Q10M Qty: 4000 0RF Rx Instructions: until fecal effluent is clear No Action lisinopril-hydrochlorothiazide 20-12.5 mg tablet 1 tab PO DAILY ciprofloxacin HCl 250 mg Tablet 500 mg PO 0700,2100 Qty: 10 0RF oxycodone 5 mg Tablet 5 mg PO 1-2XD PRN (Reason: Pain, Moderate (4-6)) Qty: 20 0RF metronidazole 500 mg tablet 500 mg PO Q12H Qty: 10 0RF Referrals: Miscellaneous,Doctor, [Primary Care Provider] - Stand Alone Forms: Patient Portal/API
[2023-08-31] MEDS: SODIUM CHLORIDE 0.9% 1,000 ML 1000 ML IV (12:00)
[2023-08-31 12:06] LABS: Bacteria Urine Occasional (0-1); Culture Indicated Urine Cult Not Indicated; Mucus Urine 1+ (Negative); RBC Urine 1-5/HPF (0-5/HPF); Squamous Epithelial Cell Urine 1-5 /HPF (0-5/HPF); Urine Volume 10mL (spun); WBC Urine 1-5/HPF (0-5/HPF)
[2023-08-31 12:09] LABS: Add Manual Diff / Slide Review NO; Basophils Absolute Auto 100 /uL (0-100); Basophils Percent Auto 0.7 % (0-2); Eosinophils Absolute Auto 100 /uL (0-450); Hematocrit 30.6 % (36-46); Hemoglobin 10.2 g/dL (12.0-16.0); Lymphocytes Absolute Auto 1000 /uL (1100-4500); Mean Corpuscular HGB Conc 33.3 % (30-36); Mean Corpuscular Hemoglobin 27.5 PG (26-34); Mean Corpuscular Volume 82.4 fL (80-100); Monocytes Absolute Auto 500 /uL (0-900); Monocytes Percent Auto 5.8 % (3-14); Neutrophils Absolute Auto 7600 /uL (1500-7000); Neutrophils Percent Auto 81.5 % (50-75); Platelet Count 310 X10^3/uL (150-400); Red Blood Cell Count 3.72 X10^6/uL (4.0-5.2); Red Cell Distribution Width 13.7 % (11.6-14.8); White Blood Cell Count 9.3 X10^3/uL (4.5-11.0)
[2023-08-31 12:17] LABS: Alanine Aminotransferase 11 IU/L (<35); Albumin 3.5 g/dL (3.5-5.0); Alkaline Phosphatase 66 U/L (38-126); Aspartate Aminotransferase 17 IU/L (14-36); BUN Creatinine Ratio 21.6 (6-22); Bilirubin Total 0.6 mg/dL (0.2-1.3); Blood Urea Nitrogen 16 mg/dL (7-17); Calcium 8.5 mg/dL (8.4-10.2); Carbon Dioxide 24 mmol/L (22-32); Chloride 104 mmol/L (98-107); Estimated Glomerular Filt Rate > 60 mL/min (>60); Globulin 3.4 g/dL (1.7-4.1); Glucose 95 mg/dL (70-100); HEMOLYSIS < 15 (0-50); Lipase 78 U/L (23-300); Potassium 3.6 mmol/L (3.4-5.1); Sodium 136 mmol/L (137-145); Total Protein 6.9 g/dL (6.3-8.2)
[2023-08-31] MEDS: LACTULOSE 20 GM/30 ML SOLUTION PO (13:54)
== END 2023-08-31 14:02 | disposition home or self-care (01) ==
PROVIDERS: Emergency Provider Emergency Medicine
DX: R10.9 Unspecified abdominal pain (principal); K59.00 Constipation, unspecified
CPT/HCPCS: 36415; 74177; 80053; 81003; 81015; 83690; 85025; 99284

== ENCOUNTER 2023-09-01 20:51 | Inpatient (IN) | payer OTHER, SELFPAY ==
[2023-08-07 19:03] VITALS: BMI 33.3
[2023-09-01] VITALS (9 sets, daily range): BP systolic 156–182; BP diastolic 82–96; PULSE 78–88; RESP 12–30; TEMP 36.6; O2SAT 93–97; BMI 31.1
--- NOTE | 2023-09-01 22:00 | DI.CT.S_ITS ---
PROCEDURE: CT ABDOMEN PELVIS W CON INDICATIONS: abd pain, constipation, no flatus, knowndivertic/abscess/per TECHNIQUE: After the administration of intravenous contrast, axial sections acquired from the lung bases to the pubic symphysis. Coronal and sagittal reformats were performed. For radiation dose reduction, the following was used: automated exposure control, adjustment of mA and/or kV according to patient size. COMPARISON: [facility], CT, CT ABDOMEN PELVIS W CON, 08/31/2023, 12:06. FINDINGS: Lower thorax: The lung bases are clear. Heart size normal. No hiatal hernia. Liver: Normal in size and attenuation. No contour deformity present. Biliary system: Calcified stones noted in the lumen of the gallbladder. No pericholecystic inflammatory change. No intra or extrahepatic bile duct dilation. Pancreas: Unremarkable without mass or inflammation evident. Spleen: Normal in size and density. Adrenals: Normal morphology and density. Reproductive system: Unremarkable as visualized. Urinary system: Large bilateral renal cysts present. Nonobstructing calculi noted on the left. No hydronephrosis. Gastrointestinal system: Sigmoid diverticulosis with surrounding inflammatory change and wall thickening. Left adnexal thick walled abscess is similar in size. There is, however, increasing volume of stool in the colon Appendix: No findings to suggest acute appendicitis. Peritoneal spaces: No mesenteric or retroperitoneal adenopathy. No free air. No free fluid. Vasculature: Distal abdominal aortic dissection extending to the left iliac, unchanged Abdominal wall: Abdominal wall intact without evidence of ventral or inguinal hernias. Musculoskeletal: Normal bone mineralization. No acute fractures. IMPRESSION: Sigmoid acute diverticulitis with adjacent abscess is similar prior exam. Increasing volume of stool in the colon. Small bowel is decompressed Stable findings include polycystic kidney disease and chronic infrarenal aortic dissection Approved by: Gerardo Crowley M.D. on 09/01/2023 at 21:48
--- NOTE | 2023-09-01 22:01 | ED.ABDPAIN ---
HPI - Abdominal Pain General Chief Complaint: Abdominal Pain Stated Complaint: abd/colon issues Time Seen by Provider: 09/01/23 21:50 Source: patient Mode of arrival: Ambulatory History of Present Illness HPI narrative: 53-year-old female with history of hypertension, recent diagnosis of diverticulitis with perforation and abscess was admitted 08/07/2023 discharged home on oral antibiotics and seen here yesterday for abdominal discomfort and constipation. Patient states that she has been trying MiraLax at home, she was also given Dulcolax yesterday, drank bottle of GoLYTELY and has not had any improvement. Patient states no fevers. She states she does have abdominal pain that is worse intermittently. She describes as left-sided feels like when her bowels are moving causes increased pain. She denies flank pain. She has had nausea today but no vomiting. She states that is new. She states she was having regular flatus but has not in the past 24 hours. She states she has not had a significant formed bowel movement in several weeks. She has had several small pellets of stool about a week ago. She states abdomen has been more distended. Patient states she did take a tablet of oxycodone earlier today because pain. She returns because she has still not had a bowel movement and has some abdominal discomfort with new nausea. She states allergic to sulfa. No regular tobacco, alcohol recreational drugs. Related Data Home Medications Medication Instructions Recorded Confirmed lisinopril 20 1 tab PO DAILY 08/07/23 08/07/23 mg-hydrochlorothiazide 12.5 mg tablet Previous Rx's Medication Instructions Recorded ciprofloxacin HCl 250 mg tablet 500 mg (2 x 250 mg) PO 0700,2100 08/08/23 #10 tabs metronidazole 500 mg tablet 500 mg PO Q12H #10 tabs 08/08/23 oxycodone 5 mg tablet 5 mg PO 1-2XD PRN Pain, Moderate 08/08/23 (4-6) #20 tabs peg 3350-electrolytes 236 240 ml PO Q10M #4,000 mL 08/31/23 gram-22.74 gram-6.74 gram-5.86 gram solution (Golytely) Allergies Allergy/AdvReac Type Severity Reaction Status Date / Time Sulfa (Sulfonamide Allergy Hives Verified 08/07/23 14:45 Antibiotics) Review of Systems Review of Systems ROS Unobtainable: All systems reviewed & are unremarkable except as noted in HPI and below Patient History Social History household members: none Smoking Status: Never smoker alcohol intake: former Smoking Status: Never smoker Substance Use Type: does not use Exam Narrative Exam Narrative: GENERAL: Alert and oriented x three, female in [id number] distress. HEENT: Head normocephalic, atraumatic, EOMI, pupils reactive, face symmetric, moist mucous membranes NECK: Supple, full range of motion CARDIOVASCULAR: Regular rate and rhythm without murmurs, rubs or gallops. RESPIRATORY: Breath sounds equal bilaterally, no wheezes rales or rhonchi. ABDOMEN: Soft, past left-sided tenderness. Patient is distended. Hypoactive bowel sounds, bowel sounds all 4 quadrants. No guarding or rebound, rigidity, no mass. Digital rectal exam patient has nontender no mass, no stool within reach. Telecommunications Engineer by MOISES Velasquez. : No CVA tenderness EXTREMITIES: Normal range of motion, no clubbing or edema. Neurovascularly intact NEUROLOGICAL: Cranial nerves II through XII grossly intact. Moving all extremities SKIN: Warm, dry, no petechiae, no rashes or lesions. Initial Vital Signs Initial Vital Signs: Vital Signs Pulse Rate 80 09/01/23 21:03 Pulse Oximetry 96 09/01/23 21:03 Course Orders Ordered: ED Orders 09/01/23 22:00 CT abdomen pelvis w con Stat Complete Blood Count AUTO DIFF Stat Comprehensive Metabolic Panel Stat Lipase Stat 09/01/23 22:03 Urine Microscopic Stat 09/01/23 23:11 XR gastrografin challenge Routine Discontinued Medications Diatrizoate Meglum/Diatrizoate Sod (Diatrizoate Meglumine, Sodium 30 Ml Solution) 30 ml PO NOW ONE Stop: 09/01/23 23:12 Last Admin: 09/01/23 23:33 Dose: 30 ml Documented By: Sodium Chloride (Normal Saline 0.9%) 1,000 mls @ 1,000 mls/hr IV BOLUS ONE Stop: 09/01/23 22:50 Last Infusion: 09/02/23 00:26 Dose: Infused Documented By: Admin: 09/01/23 22:06 Dose: 1,000 mls/hr Documented By: Ketorolac Tromethamine (Ketorolac 30 Mg/Ml Vial) 15 mg IV NOW ONE Stop: 09/01/23 22:01 Last Admin: 09/01/23 22:06 Dose: 15 mg Documented By: AB Ondansetron HCl (Ondansetron 4 Mg/2 Ml Inj) 4 mg IV NOW ONE Stop: 09/01/23 22:01 Last Admin: 09/01/23 22:06 Dose: 4 mg Documented By: AB Vital Signs Vital signs: Vital Signs - 8 hr 09/01/23 21:03 09/01/23 21:11 09/01/23 21:30 Temperature 97.8 F Pulse Rate 80 84 Respiratory Rate 18 Blood Pressure 171/93 H 158/82 H Pulse Oximetry 96 97 Oxygen Delivery Method Room Air 09/01/23 21:30 09/01/23 22:00 09/01/23 22:03 Temperature Pulse Rate 86 84 Respiratory Rate Blood Pressure 182/96 H Pulse Oximetry 95 97 Oxygen Delivery Method 09/01/23 22:03 09/01/23 22:23 09/01/23 22:23 Temperature Pulse Rate 79 80 Respiratory Rate 12 Blood Pressure 171/95 H Pulse Oximetry 96 95 Oxygen Delivery Method 09/01/23 22:30 09/01/23 22:30 09/01/23 23:01 Temperature Pulse Rate 83 88 Respiratory Rate 30 H Blood Pressure 156/89 H Pulse Oximetry 95 Oxygen Delivery Method MDM - Abdominal Pain Lab Data 09/01/23 22:00 09/01/23 22:00 Labs: Lab Results 09/01/23 09/01/23 Range/Units 22:00 22:03 WBC 7.9 (4.5-11.0) X10^3/uL RBC 3.75 L (4.0-5.2) X10^6/uL Hgb 10.3 L (12.0-16.0) g/dL Hct 31.2 L (36-46) % MCV 83.2 (80-100) fL MCH 27.4 (26-34) PG MCHC 33.0 (30-36) % RDW 13.8 (11.6-14.8) % Plt Count 342 (150-400) X10^3/uL Neut % (Auto) 82.9 H (50-75) % Lymph % (Auto) 11.0 L (25-40) % [place] % (Auto) 4.9 (3-14) % Eos % (Auto) 0.6 L (2-4) % Baso % (Auto) 0.6 (0-2) % Neut # (Auto) 6600 (6707-1373) /uL Lymph # (Auto) 900 L (3223-5297) /uL [place] # (Auto) 400 (0-900) /uL Eos # (Auto) 0 (0-450) /uL Baso # (Auto) 100 (0-100) /uL Sodium 137 (137-145) mmol/L Potassium 3.5 (3.4-5.1) mmol/L Chloride 104 (98-107) mmol/L Carbon Dioxide 26 (22-32) mmol/L BUN 14 (7-17) mg/dL Creatinine 0.73 (0.52-1.04) mg/dL Estimated GFR > 60 (>60) mL/min BUN/Creatinine Ratio 19.2 (6-22) Glucose 98 (70-100) mg/dL Calcium 8.6 (8.4-10.2) mg/dL Total Bilirubin 0.6 (0.2-1.3) mg/dL AST 18 (14-36) IU/L ALT 11 (<35) IU/L Alkaline Phosphatase 64 (38-126) U/L Total Protein 7.1 (6.3-8.2) g/dL Albumin 3.7 (3.5-5.0) g/dL Globulin 3.4 (1.7-4.1) g/dL Albumin/Globulin Ratio 1.1 (1.0-2.8) Lipase 55 (23-300) U/L Urine RBC 0-1/hpf (0-5/HPF) Urine WBC 1-5/hpf (0-5/HPF) Ur Squamous Epith Cells 10-30 /hpf H D (0-5/HPF) Urine Bacteria Few (2-10) H (None) Hyaline Casts 0-1/lpf (None) Urine Mucus 2+ H (Negative) Ur Culture Indicated? Cult not indicated Vol Urine Centrifuged Low vol <10ml (spun) A Point of care testing: Urine Dip Bedside Urine Glucose Negative Bedside Urine Bilirubin - Negative Bedside Urine Ketone ++ 40 Urine Specific [place] 1.030 Bedside Urine Occult Blood + Bedside Urine pH 5.5 Bedside Urine Protein + 30 Bedside Urine Urobilinogen - Negative Bedside Urine Nitrite - Negative Bedside Urine Leukocytes - Negative Esterase MDM Narrative Medical decision making narrative: 53-year-old female with likely constipation but complicated by recent diverticulitis previous guzmán and abscess which were treated with overnight antibiotics for admission and then discharged home on 5 days of oral antibiotics. Patient states she is never really had much bowel movements and has not increasing discomfort states started developed nausea today no flatus in the last 24 hours increasing distention despite trying Dulcolax, MiraLax and drinking a bottle of GoLYTELY yesterday after being seen in the ED. On exam patient does appear distended, she is tender on the left. Her CT showed not significant change in abscess or improvement versus worsening yesterday. There was no clear signs of obstruction did show changes consistent with constipation. Discussed with patient because of her changes with diverticulitis and known perforation do not think x-ray would be adequate to rule out new significant change. We will repeat labs and CT. Labs white count of 7.9 hemoglobin of 10, platelets of 342, chemistries are negative, creatinine is negative, LFTs are negative. Point of care glucose shows ketones protein no nitrates or leuks. 1-5 RBCs 1-5 WBCs 1-5 squamous, [address] shows sigmoid acute diverticulitis with a adjacent abscess similar to prior exam increasing volume of stool small bowel decompressed stable findings including polycystic kidney disease and chronic infrarenal aortic dissection. Patient has prior CT from 07/29 noted could be a possibility of mass. Patient did have pelvic ultrasound and patient did have left adnexal fluid collection measuring 2.4 cm likely corresponding to pelvic abscess seen on prior same day CT. Discussed with Dr. Flores, she is aware of patient's changes on CT that that there was concerned about mass versus infection. We will bring patient in for observation, Gastrografin challenge and evaluation. Patient has normal white count, afebrile we will hold off on additional antibiotics. Patient is receiving fluids. Gastrografin challenge was ordered. Discussed with patient she is agreeable with plan. Discharge Plan Departure Patient Disposition: Admitted as Observation Clinical Impression: Diverticulitis of large intestine with perforation and abscess, Constipation Admit Date/Time: 09/01/23 23:12 Admit Provider: Heather Flores
[2023-09-01] MEDS: SODIUM CHLORIDE 0.9% 1,000 ML 1000 ML IV (22:06)
[2023-09-01] MEDS: ONDANSETRON 4 MG/2 ML INJ IV (22:06)
[2023-09-01] MEDS: KETOROLAC 30 MG/ML VIAL 15 MG IV (22:06)
[2023-09-01 22:11] LABS: Add Manual Diff / Slide Review NO; Basophils Absolute Auto 100 /uL (0-100); Basophils Percent Auto 0.6 % (0-2); Eosinophils Absolute Auto 0 /uL (0-450); Eosinophils Percent Auto 0.6 % (2-4); Hematocrit 31.2 % (36-46); Hemoglobin 10.3 g/dL (12.0-16.0); Lymphocytes Absolute Auto 900 /uL (1100-4500); Mean Corpuscular Hemoglobin 27.4 PG (26-34); Mean Corpuscular Volume 83.2 fL (80-100); Monocytes Absolute Auto 400 /uL (0-900); Monocytes Percent Auto 4.9 % (3-14); Neutrophils Absolute Auto 6600 /uL (1500-7000); Neutrophils Percent Auto 82.9 % (50-75); Platelet Count 342 X10^3/uL (150-400); Red Blood Cell Count 3.75 X10^6/uL (4.0-5.2); Red Cell Distribution Width 13.8 % (11.6-14.8); White Blood Cell Count 7.9 X10^3/uL (4.5-11.0)
[2023-09-01 22:23] LABS: Alanine Aminotransferase 11 IU/L (<35); Albumin 3.7 g/dL (3.5-5.0); Albumin Globulin Ratio 1.1 (1.0-2.8); Alkaline Phosphatase 64 U/L (38-126); Aspartate Aminotransferase 18 IU/L (14-36); BUN Creatinine Ratio 19.2 (6-22); Bilirubin Total 0.6 mg/dL (0.2-1.3); Blood Urea Nitrogen 14 mg/dL (7-17); Calcium 8.6 mg/dL (8.4-10.2); Carbon Dioxide 26 mmol/L (22-32); Chloride 104 mmol/L (98-107); Estimated Glomerular Filt Rate > 60 mL/min (>60); Globulin 3.4 g/dL (1.7-4.1); Glucose 98 mg/dL (70-100); HEMOLYSIS < 15 (0-50); Lipase 55 U/L (23-300); Potassium 3.5 mmol/L (3.4-5.1); Sodium 137 mmol/L (137-145); Total Protein 7.1 g/dL (6.3-8.2)
[2023-09-01 22:43] LABS: Bacteria Urine Few (2-10); Culture Indicated Urine Cult Not Indicated; Hyaline Casts Urine 0-1/LPF; Mucus Urine 2+ (Negative); RBC Urine 0-1/HPF (0-5/HPF); Squamous Epithelial Cell Urine 10-30 /HPF (0-5/HPF); Urine Volume Low Vol <10mL (spun); WBC Urine 1-5/HPF (0-5/HPF)
--- NOTE | 2023-09-01 23:11 | DI.RAD.S_ITS ---
PROCEDURE: XR GASTROGRAFIN CHALLENGE COMPARISON: [facility], CT, CT ABDOMEN PELVIS W CON, 09/01/2023, 22:17. INDICATIONS: please xray 4 hours after gastrograffin challenge FINDINGS: Oral contrast is visualized within the small bowel and within the distended ascending colon. There is no definite contrast visualized within the descending or sigmoid colon. Punctate foci of contrast visualized within the left upper quadrant suggest contrast within small diverticular outpouchings. IMPRESSION: Distension of the colon with oral contrast visualized only within the ascending colon. Repeat study to evaluate for transit of oral contrast into the distal colon is recommended. Dictated by: Lizzy Brunson M.D. on 09/02/2023 at 8:11 Approved by: Lizzy Brunson M.D. on 09/02/2023 at 8:14
[2023-09-01] MEDS: DIATRIZOATE MEGLUMINE, SODIUM 30 ML SOLUTION PO (23:33)
[2023-09-02] VITALS (8 sets, daily range): BP systolic 135–199; BP diastolic 80–106; PULSE 70–92; RESP 14–33; TEMP 36.4–36.8; O2SAT 84–98
[2023-09-02] MEDS: ONDANSETRON 4 MG ODT PO (01:47)
[2023-09-02] MEDS: DEXTROSE 5%-0.9% NS 1,000 ML 100 ML IV ×3 (01:47→23:02)
[2023-09-02] MEDS: MORPHINE 2 MG/ML INJ IV ×5 (01:47→23:14)
[2023-09-02] MEDS: OXYCODONE IR 5 MG TABLET PO (04:49)
[2023-09-02] MEDS: PANTOPRAZOLE DR 20 MG TABLET PO (06:39)
[2023-09-02] MEDS: lisinopriL 20 MG TABLET PO (08:22)
[2023-09-02] MEDS: hydroCHLOROthiazide 25 MG TABLET 12.5 MG PO (08:22)
[2023-09-02] MEDS: BISACODYL 10 MG SUPP PR (11:00)
--- NOTE | 2023-09-02 14:37 | PM.HP.1 ---
History of Present Illness History of Present Illness Date Patient Seen: 09/02/23 Time Patient Seen: 14:37 Chief complaint: abd/colon issues Narrative: Readmitted for obstipation and persistent diverticulitis. I remain skeptical that the abscess in the pelvis that is unchanged could just be an ovarian cyst. No evidence of sepsis or infection aside from persistent changes inflammatory changes in a short segment if sigmoid colon c/w diverticulitis PFSH Social History household members: none Smoking Status: Never smoker alcohol intake: former Meds Home Medications and Allergies Home Medications Medication Instructions Recorded Confirmed Type oxycodone 5 mg tablet 5 mg PO 1-2XD PRN Pain, Moderate 08/08/23 09/02/23 Rx (4-6) #20 tabs peg 3350-electrolytes 236 240 ml PO Q10M #4,000 mL 08/31/23 09/02/23 Rx gram-22.74 gram-6.74 gram-5.86 gram solution (Golytely) lisinopril 20 1 tab PO DAILY 09/02/23 09/02/23 History mg-hydrochlorothiazide 12.5 mg tablet Allergies Allergy/AdvReac Type Severity Reaction Status Date / Time Sulfa (Sulfonamide Allergy Hives Verified 08/07/23 14:45 Antibiotics) Review of Systems Review of Systems ROS: Yes All systems reviewed with the patient and are negative except as otherwise documented Exam Vital Signs (past 8 hours): - 09/02/23 06:45 09/02/23 08:29 09/02/23 12:10 Temperature 97.6 F 98.3 F 97.6 F Pulse Rate 75 71 73 Respiratory Rate 17 16 15 Blood Pressure 173/98 H 170/106 H 135/80 Pulse Oximetry 95 95 97 Oxygen Flow Rate 0 0 Oxygen Delivery Method Room Air Oxygen Flow Rate 0 Const General: cooperative and No comfortable Nutritional Appearance: average body habitus HENMT Head: normocephalic and atraumatic Eyes Sclera: sclerae normal Neck Neck: trachea midline and No JVD Resp Effort & Inspection: normal respiratory effort and able to speak in complete sentences Cardio Rate: regular rate Rhythm: regular rhythm GI Inspection: distended Palpation: firm and No guarding Skin General: turgor normal and No atrophy Neuro General: patient alert, patient awake and patient oriented x3 Cognition: normal cognition Psych Mental Status: mental status grossly normal Judgment: judgment good Objective Labs 09/01/23 22:00 09/01/23 22:00 Labs: Laboratory Results - last 24 hr 09/01/23 09/01/23 22:00 22:03 WBC 7.9 RBC 3.75 L Hgb 10.3 L Hct 31.2 L MCV 83.2 MCH 27.4 MCHC 33.0 RDW 13.8 Plt Count 342 Neut % (Auto) 82.9 H Lymph % (Auto) 11.0 L [place] % (Auto) 4.9 Eos % (Auto) 0.6 L Baso % (Auto) 0.6 Neut # (Auto) 6600 Lymph # (Auto) 900 L [place] # (Auto) 400 Eos # (Auto) 0 Baso # (Auto) 100 Sodium 137 Potassium 3.5 Chloride 104 Carbon Dioxide 26 BUN 14 Creatinine 0.73 Estimated GFR > 60 BUN/Creatinine Ratio 19.2 Glucose 98 Calcium 8.6 Total Bilirubin 0.6 AST 18 ALT 11 Alkaline Phosphatase 64 Total Protein 7.1 Albumin 3.7 Globulin 3.4 Albumin/Globulin Ratio 1.1 Lipase 55 Urine RBC 0-1/hpf Urine WBC 1-5/hpf Ur Squamous Epith Cells 10-30 /hpf H D Urine Bacteria Few (2-10) H Hyaline Casts 0-1/lpf Urine Mucus 2+ H Ur Culture Indicated? Cult not indicated Vol Urine Centrifuged Low vol <10ml (spun) A Assessment & Plan Assessment & Plan narrative: Recent diagnosis of diverticulitis with perforation +/- abscess(vs ovarian cyst). Infection clinically resolved. Now with obstipation. She has not had regular BM in over 2 weeks. Golyte and gastrografin on board now. Plan: Observed until tomorrow. If no progress, she needs intervention. Scope vs OR for Xlap tomorrow. Time Spent With Patient Time with patient: 30 to 49 minutes with 50% spent counseling/coordinating care Quality VTE Deep Vein Thrombosis/Pulmonary Embolism Present on Admission: No
--- NOTE | 2023-09-02 15:11 | CM.DANOTE ---
DCP Assessment note Brief Pt is a 53yo F readmit following diverticulitis/constipation. Pt was here 08/07/23-08/08/23 and returned with abdominal pain. PCP none listed Payer [place] and self pay CERTIFIED LOW VISION THERAPIST reviewed EMR. Per chart review, pt discharged home no needs from CM team last admission. Pt is indep/active/drives at baseline. Per RN, plan is to scope pt Sunday (tomorrow) no anticipated DCP/CM needs. Per surgeon H&P, pt could also have an ovarian cyst. pt has not had a regular BM in two weeks. CERTIFIED LOW VISION THERAPIST unable to meet with pt today due to triaging needs. P: anticipate home when stable no needs. CM team will follow closely for any DCP needs to arise as medical POC continues. DANITA Martínez Discharge Planning/Care Management CM Discharge Assessment Start: 09/02/23 15:09 Freq: Status: Active Protocol: Document 09/02/23 15:09 (Rec: 09/02/23 15:11 [id number]) Discharge Planning Assessment Assigned Video Game Animator DANITA Mullen DPOA/Assigned Designee Name Gokul dotson Contact Information [phone] Advance Directives? No History Provided By Patient,Medical Record Has Patient been admitted in last 30 Yes days? Comment admitted 5.-08.08.23 Prior Living Arrangements House Household Members none Type of transporation used prior to Drives own vehicle admit Independent with ADL's Yes Is patient alert and oriented? Yes Barriers to Discharge No Discharge Plan Home Transportation Arrangement Self Referrals Initiated None needed Whiteboard Updated in Patient Room with No name and ext. # of Video Game Animator Review Status In Process Please Provide Date Initial DC 09/02/23 Assessment Was Performed Next Review Type Continued Stay Review
[2023-09-03] VITALS (14 sets, daily range): BP systolic 128–170; BP diastolic 77–100; PULSE 62–90; RESP 12–18; TEMP 35.9–36.9; O2SAT 92–98; BMI 31.4
[2023-09-03] MEDS: MORPHINE 2 MG/ML INJ IV ×6 (02:12→21:37)
[2023-09-03] MEDS: DEXTROSE 5%-0.9% NS 1,000 ML 100 ML IV (09:50)
--- NOTE | 2023-09-03 11:12 | DIET.CONS ---
Dietary Consultation Note Admission Date: 09/01/2023 23:12 Assessment: 53 y F readmit following diverticulitis/constipation. Nutrition screened for low MNA. Met with pt at bedside who reports 2 weeks of eating soft foods only (yogurts, applesauce, eggs) due to abdominal pain. Last ate (eggs) this past Sunday morning. Reports 7 lb weight loss (3.18 kg) in 1 month. Currently NPO for scope today. Nutrition focused physical exam performed with no significant results. Areas assessed: temporal and clavicle region, interosseous, orbital and buccal fat pads. Ht: 166.37 cm Wt: 87 kg BMI: 31.1 UBW: 90.718 kg on 08/06 (-4% weight in 1 month, non-severe) Last BM: 08/29/23 (09/01/23 23:32) MNA: 10 Jerad Score: 20 Diet: 09/02/23 10:39 NPO Diet Diet Modifications: May Advance Diet as Tolerated: No NPO Type: NPO except for Ice Chips Nutrition Percent Meal Consumed Pt refused breakfast 09/02/23 08:00 Labs: RBC 3.75 X10^6/uL (4.0-5.2) L 09/01/23 22:00 Hgb 10.3 g/dL (12.0-16.0) L 09/01/23 22:00 Hct 31.2 % (36-46) L 09/01/23 22:00 Creatinine 0.73 mg/dL (0.52-1.04) 09/01/23 22:00 Nutrition Diagnosis: Inadequate oral intake r/t decreased ability to consume adequate intake in setting of abdominal pain aeb 4 days <25% estimated energy needs per diet recall. Interventions: 1. Monitor for diet advancement, encouraged energy and protein rich foods upon ability to tolerate po intakes and diet advancement Monitoring/Evaluations: diet advancement, po intakes Electronically Signed by: Rhiannon Burden 09/03/23 11:12 Clinical Dietitian [address] [id number]
--- NOTE | 2023-09-03 13:12 | PM.PREOP ---
Pre-operative Note COVID-19 COVID-19 status: Negative Interval Note History & Physical reviewed/Exam performed by Physician: Yes Changes to H&P: Yes H&P completed within 30 days and has changed as indicated here:: No results from bowel prep. Not even passing gas. Abdomen progressively distended. I discussed going straight to exploratory laparotomy at this point. Laparoscopic nor Robotic are reasonable since her abdomen is at maximal distention now and insufflation is contraindicated. Patient agrees to Xlap with possible colon resection +/- temporary colostomy. No colonoscopy pre op.
--- NOTE | 2023-09-03 15:23 | SUR.HOLD ---
Pt in Pre-op. Dr Flores notified that patient had last dose of morphine at 11am. Pain increasing at this time. Surgery on hold due to anaesthesia in L&D. Per Dr Flores, use her IV Morphine order in MAY.
[2023-09-03] MEDS: LACTATED RINGERS 1,000 ML 42 ML IV (15:35)
--- NOTE | 2023-09-03 16:51 | CM.DPNOTE ---
DCP Note [employer] reviewed EMR. Per chart review, plan for exploratory laparotomy. Time for OR unknown at this time. Per surgeon note, no BM or gas with bowel prep. P: anticipate home when stable no needs. CM team will follow closely for any DCP needs to arise as medical POC continues. DANITA Martínez
[2023-09-03] MEDS: ACETAMINOPHEN IV 1,000 MG/100 ML VIAL 400 MG IV (17:30)
--- NOTE | 2023-09-03 17:32 | SUR.OPER ---
Lithotomy on padded OR bed, head on pillow, arms secured on padded arm boards at <90 degrees abduction. Legs secured in padded yellow fins stirrups.
[2023-09-03] MEDS: CEFAZOLIN 2 GM/100 ML PREMIX 100 ML IV (17:34)
--- NOTE | 2023-09-03 19:57 | P.OP_ITS ---
Operative Date/Time/Diagnoses Date of procedure: 09/03/23 Time of procedure: 19:57 Pre-op diagnosis: Colonic obstruction Post-op diagnosis: same Procedure & Clinicians Procedure: Exploratory laparotomy with diverting colostomy and lysis of adhesions, takedown of splenic flexure Same procedure as scheduled: Yes Indications: Colonic obstruction that appears to be benign Surgeon: Heather Flores Click Yes if Unassisted: Yes Anesthesia Type: General Operative Notes Findings: Dilated colon. Left fallopian tube pinning portion of the colon to the sidewall. Grossly appears to be benign inflammatory process related to previous diverticulitis. No abscess identified, ovarian cyst present. Closure Type: primary Specimen(s): none sent Estimated Blood Loss (mL): 50 Blood products transfused: none Procedure in detail: Preop diagnosis: Colonic obstruction Postop diagnosis: Same Operative procedure: Diverted colostomy would along with lysis of adhesions Surgeon: Maisha Flores MD Anesthesia: Luis Larry MD Findings: What appears to be an inflammatory process involving not only the colon but the left fallopian tube causing obstruction. Given the state of the dilated colon choice was made to do a diverting colostomy and allow the inf lammatory process to recede. 6-8 weeks colostomy takedown after colonoscopy has been performed. Resection of that portion of colon will be addressed at the time of colostomy takedown if it remains necessary. Certainly can not rule out neoplasm, but no clear gross evidence. Procedure: Patient placed in lithotomy position. Prepped and draped in sterile fashion. Rectal exam performed under sedation with findings of a smooth edged blockage consistent with benign disease/inflammatory process. Lower midline incision was created with electrocautery. Left side of the colon was mobilized up to the splenic flexure. I did attempt to mobilize the section of sigmoid colon in question. Found the left fallopian tube to be a portion of the obstruction however there still was intense inflammation from her recent diverticulitis, no abscess is identified. Given the possibility that this is indeed benign process and her colon is grossly dilated, I chose to divert her colon, allow time for recovery and deal with that segment of colon during the take down. Sigmoid colon was divided with a 75 blue linear stapler. The end was mobilized up through the abdominal wall at the stoma site created. Of note the abdominal wall is robust and the stoma site at this point is somewhat receded. I created the stoma site and pulled the intended section of bowel into the wound and went back to close the abdomen. During the course of the procedure in attempts to gain better visibility I also did a decompression on the table of the colon using suction and a silk pursestring at the site of the staple line. This was marginally successful given the thickness of the stool but did give us enough visualization to complete our task, and revisit the pelvis for what seems even more likely to be benign inflammatory process. Finger fracture technique was used to help to mobilize the sigmoid colon however any further aggression that area would have resulted in injury to the bowel, this also attributed to the decision for diversion. Midline was closed after pulling the omentum across the bowel for coverage with a running looped 1.0 PDS. Skin was closed with surgical jasiel leaving the lower end loosely approximated for drainage purposes. A covering Tegaderm was placed across the midline wound during the process of maturation of the stoma. Stoma was matured in the usual fashion attempting tha bud formation with interrupted 3-0 Vicryl. Stoma is congested but viable and a stoma bag was placed. We then cleaned the midline incision and placed a surgical dressing there as well. Patient was awakened, extubated, taken to recovery room stable condition. Needle, instrument, sponge counts were correct. At the end of the case anesthesia provided a local abdominal wall blocks for pain control. Specimen: None Blood loss: 50 mL Complications: none Post-operative Condition: stable Disposition: PACU
--- NOTE | 2023-09-03 20:07 | SUR.OPER ---
Colostomy Lower Left quadrant created by Dr. Flores with 57mm pouch
[2023-09-03] MEDS: SCOPOLAMINE 1 PATCH TOP (21:47)
[2023-09-03] MEDS: GABAPENTIN 300 MG CAPSULE PO (21:48)
[2023-09-03] MEDS: CELECOXIB 200 MG CAPSULE PO (21:48)
[2023-09-04] VITALS (7 sets, daily range): BP systolic 95–148; BP diastolic 54–88; PULSE 68–84; RESP 15–18; TEMP 36.1–36.6; O2SAT 95–96
[2023-09-04] MEDS: OXYCODONE IR 5 MG TABLET PO ×3 (04:58→20:52)
[2023-09-04] MEDS: PANTOPRAZOLE DR 20 MG TABLET PO (05:00)
[2023-09-04 06:07] LABS: Alanine Aminotransferase 9 IU/L (<35); Albumin 3.1 g/dL (3.5-5.0); Albumin Globulin Ratio 1.1 (1.0-2.8); Alkaline Phosphatase 55 U/L (38-126); Aspartate Aminotransferase 16 IU/L (14-36); BUN Creatinine Ratio 16.9 (6-22); Bilirubin Total 0.5 mg/dL (0.2-1.3); Blood Urea Nitrogen 12 mg/dL (7-17); Carbon Dioxide 30 mmol/L (22-32); Chloride 103 mmol/L (98-107); Estimated Glomerular Filt Rate > 60 mL/min (>60); Globulin 2.9 g/dL (1.7-4.1); Glucose 126 mg/dL (70-100); HEMOLYSIS < 15 (0-50); Potassium 4.6 mmol/L (3.4-5.1); Sodium 136 mmol/L (137-145)
[2023-09-04 06:17] LABS: Add Manual Diff / Slide Review NO; Basophils Absolute Auto 0 /uL (0-100); Basophils Percent Auto 0.1 % (0-2); Eosinophils Absolute Auto 0 /uL (0-450); Hematocrit 35.9 % (36-46); Hemoglobin 11.6 g/dL (12.0-16.0); Lymphocytes Absolute Auto 600 /uL (1100-4500); Lymphocytes Percent Auto 4.5 % (25-40); Mean Corpuscular HGB Conc 32.4 % (30-36); Mean Corpuscular Hemoglobin 26.8 PG (26-34); Mean Corpuscular Volume 82.9 fL (80-100); Monocytes Absolute Auto 600 /uL (0-900); Monocytes Percent Auto 4.3 % (3-14); Neutrophils Absolute Auto 12100 /uL (1500-7000); Neutrophils Percent Auto 91.1 % (50-75); Platelet Count 394 X10^3/uL (150-400); Red Blood Cell Count 4.33 X10^6/uL (4.0-5.2); Red Cell Distribution Width 13.8 % (11.6-14.8); White Blood Cell Count 13.3 X10^3/uL (4.5-11.0)
[2023-09-04] MEDS: hydroCHLOROthiazide 25 MG TABLET 12.5 MG PO (08:15)
[2023-09-04] MEDS: CELECOXIB 200 MG CAPSULE PO ×2 (08:15→20:52)
[2023-09-04] MEDS: IBUPROFEN 600 MG TABLET PO ×3 (08:15→18:23)
[2023-09-04] MEDS: lisinopriL 20 MG TABLET PO (08:16)
--- NOTE | 2023-09-04 10:22 | PC.NURSE ---
Pt's ostomy bag burst and was leaking stool into the abdominal dsg. Spoke with Dr. Todd about this and he stated we could shower Pt and replace both the abdominal dsg and ostomy appliance. Pt tolerated this well and was able to mobilize to the shower and then back to bed without difficulty or dizziness. Leakage noted from midline incision and abdominal dsg was saturated with serosanguinous drainage and stool. Cleaned area and applied dsg. Dr. Todd stated he would be by around lunchtime to check on the Pt. Pt back to bed and denies needs. Family at the bedside now and Pt agrees to call for assistance as needed.
[2023-09-04] MEDS: ACETAMINOPHEN 325 MG TABLET 650 MG PO (12:15)
--- NOTE | 2023-09-04 12:44 | P.PN_ITS ---
Subjective Subjective Date Patient Seen: 09/04/23 Time Patient Seen: 14:28 Interval history: No major overnight events. Incisional pain Colostomy productive and leaking Exam Vital Signs (past 8 hours): - 09/04/23 05:00 09/04/23 08:16 09/04/23 09:00 Temperature 97.2 F L 97.2 F L Pulse Rate 71 79 Respiratory Rate 18 15 Blood Pressure 148/86 H 125/77 112/77 Pulse Oximetry 96 96 Oxygen Flow Rate 2 0 Fraction of Inspired Oxygen 28 SaO2/FiO2 Ratio 342 Oxygen Delivery Method Nasal Cannula Oxygen Flow Rate 0 Narrative Exam Narrative: General adult woman alert oriented no acute distress Abdomen soft appropriately tender to palpation. Midline incision clean dry intact with jasiel. Couple of the jasiel have pulled out. Colostomy productive Objective Labs 09/04/23 04:35 09/04/23 04:35 Labs: Laboratory Results - last 24 hr 09/04/23 04:35 WBC 13.3 H RBC 4.33 Hgb 11.6 L Hct 35.9 L MCV 82.9 MCH 26.8 MCHC 32.4 RDW 13.8 Plt Count 394 Neut % (Auto) 91.1 H Lymph % (Auto) 4.5 L Carolina % (Auto) 4.3 Eos % (Auto) 0.0 L Baso % (Auto) 0.1 Neut # (Auto) 58171 H Lymph # (Auto) 600 L Carolina # (Auto) 600 Eos # (Auto) 0 Baso # (Auto) 0 Sodium 136 L Potassium 4.6 Chloride 103 Carbon Dioxide 30 BUN 12 Creatinine 0.71 Estimated GFR > 60 BUN/Creatinine Ratio 16.9 Glucose 126 H Calcium 8.0 L Total Bilirubin 0.5 AST 16 ALT 9 Alkaline Phosphatase 55 Total Protein 6.0 L Albumin 3.1 L Globulin 2.9 Albumin/Globulin Ratio 1.1 Carcinoembryonic Ag 1.0 [facility] Social History household members: none Smoking Status: Never smoker alcohol intake: former Assessment & Plan Post-op Postoperative Procedures: Procedures Operation Date: 09/03/23 15:00 Actual Procedure Side Surgeon p Exploratory laparotomy with diverting colostomy and lysis of adhesions, takedown of splenic flexure Heather Flores MD Postoperative status narrative: 53-year-old woman postoperative day 1 status post diverting colostomy for colonic obstruction likely benign -advance diet to regular -DC IV fluids -colostomy teaching -SCDs and prophylactic Lovenox Quality VTE Deep Vein Thrombosis/Pulmonary Embolism Present on Admission: No
--- NOTE | 2023-09-04 15:21 | CM.DPNOTE ---
DCP Note CUTTER APPRENTICE HAND reviewed EMR. Per product safety consultant in morning rounds, she will look into coordinating with trimming caser for teaching for new ostomy bag. Per RN, pt doing wonderfully, plan is for trimming caser to meet with pt in room tomorrow 1pm for teaching. Pt dtr plans to stay with her for a week after discharge and has another local son support. Pt having productive BMs. Plan: No new CM/DCP needs identified from chart review. anticipate dc tomorrow vs another day home with dtr support. CM team will continue to follow as needed. DANITA Martínez
--- NOTE | 2023-09-04 15:30 | PC.NURSE ---
Addendum entered by Jeri Lombardi R.N. 09/04/23 16:18: Mabel d/c'd per Dr. Todd recommendation. Original Note: Dr. Todd here to see Pt and he removed a few loose jasiel and replaced with new ones where needed. New dressing placed. Pt denies pain at this time.
[2023-09-04] MEDS: GABAPENTIN 300 MG CAPSULE PO (20:52)
[2023-09-05] VITALS (8 sets, daily range): BP systolic 91–139; BP diastolic 47–77; PULSE 67–85; RESP 13–18; TEMP 35.9–36.9; O2SAT 92–96
[2023-09-05] MEDS: PANTOPRAZOLE DR 20 MG TABLET PO (05:07)
[2023-09-05] MEDS: OXYCODONE IR 5 MG TABLET PO ×3 (06:38→20:52)
[2023-09-05] MEDS: lisinopriL 20 MG TABLET PO (08:26)
[2023-09-05] MEDS: IBUPROFEN 600 MG TABLET PO ×2 (08:27→14:07)
[2023-09-05] MEDS: ACETAMINOPHEN 325 MG TABLET 650 MG PO ×2 (08:28→20:52)
[2023-09-05] MEDS: CELECOXIB 200 MG CAPSULE PO ×2 (08:28→20:54)
[2023-09-05] MEDS: hydroCHLOROthiazide 25 MG TABLET 12.5 MG PO (08:29)
[2023-09-05] MEDS: SIMETHICONE 80 MG TABLET PO (08:32)
--- NOTE | 2023-09-05 13:21 | PM.PNPO.1 ---
Subjective Subjective Date Patient Seen: 09/05/23 Time Patient Seen: 13:21 Interval history: No overnight events. Colostomy teaching today Tolerating diet Exam Vital Signs (past 8 hours): - 09/05/23 08:00 09/05/23 08:00 09/05/23 08:26 Temperature 98.0 F 98.0 F Pulse Rate 76 74 Respiratory Rate 16 13 Blood Pressure 139/77 139/77 139/77 Pulse Oximetry 95 94 Oxygen Flow Rate 0 0 09/05/23 12:23 Temperature 98.4 F Pulse Rate 85 Respiratory Rate 14 Blood Pressure 102/56 L Pulse Oximetry 93 Oxygen Flow Rate Fraction of Inspired Oxygen 24 SaO2/FiO2 Ratio 342 Oxygen Delivery Method Nasal Cannula Oxygen Flow Rate 0 Narrative Exam Narrative: General adult woman alert oriented no acute distress Abdomen midline incision dressings clean intact. Colostomy productive Objective Labs 09/04/23 04:35 09/04/23 04:35 [facility] Social History household members: none Smoking Status: Never smoker alcohol intake: former Assessment & Plan Post-op Postoperative Procedures: Procedures Operation Date: 09/03/23 15:00 Actual Procedure Side Surgeon p Exploratory laparotomy with diverting colostomy and lysis of adhesions, takedown of splenic flexure Heather Flores MD Postoperative status narrative: 53-year-old woman postoperative day 2 status post exploratory laparotomy with diverting colostomy for colonic stricture. -ostomy teaching today -regular diet -prophylactic Lovenox and SCDs -physical therapy -anticipate discharge home tomorrow. Discussed with care management home health. Quality VTE Deep Vein Thrombosis/Pulmonary Embolism Present on Admission: No
--- NOTE | 2023-09-05 15:02 | PC.RNWOUND ---
Ostomy Nurse Note Consulted to see patient for Ostomy assessment and training for Self Care for discharge home, 09/06/23. Patient Had an Exploratory Laparotomy with diverting colostomy and lysis of adhesions, takedown of splenic flexure on 09/03/23. Post-op day 2. Reviewed [employer] New Patient Guide and [employer]OAA Nutrition Guide. Explained to patient the use of ostomy appliance and supplies. Client just finished eating her meal which she tolerated well. Removed appliance, Convatec 57mm flat wafer with a transparent, not filtered pouch. Appliance was leaking liquid effluent of brown stool. The stoma measures 35mm. The stoma if with in a dimple and is flush with the skin. The stoma has slough and is dusky. Called Dr. Todd to inform him that the stoma is sloughy and is dusky, and is functioning. There are sutures present and a slight mucotaneous seperation at the 1:00 position measuring 0.3 cm. Client is to be discharged home tomorrow without Home Health Services because she does not have a PCP. Client stated that she has family that will help her and several nurse friends living on [facility] whom she can call to help. I told patient I had concerns that the stoma is dusky and that home health will not be available to assess her stoma. Client does have a midline incision dressing on that has old blood. Dr. Todd and I discussed to teach patient to come back to the ER if her stoma is not producing efflulent, has increased pain, notices that the stoma become dark in color. Reviewed this with the patient and had her look at the stoma and I showed her what my concerns are to make sure the stoma remains viable. Patient verbalized understanding. I gave the client my personal phone number and told her she can call me if she has any concerns. Patient agreed to this. Did the crusting technique on the peristomal skin to protect if if the appliance leaks, although the peristomal skin is intact. Used an Adalgisa ring around the stoma and a Convatec two piece Convexity wafer and transparent pouch. Client assist with this appliance change and used the mirror to watch the change. Gave the client 6 convatec, convex appliances and pouches, skin barrier remover, skin prep, stoma powder and lubricating deodorant. Client will continue to review the [employer] New Patient Guides and I have instructed her to watch some YouTube videos. Client will monitor her stoma. [facility] 11 for continue education and monitoring. Client is comfortable with this plan of care. Photo taken, yet not uploaded into the EHR due to inability to upload it, spoke with PATIENCE Irvin. A copy of the photo was printed out and will be scanned into the chart.
--- NOTE | 2023-09-05 15:20 | PT.IIE ---
Current Diagnoses Intestinal adhesions [bands], unspecified as to partial versus complete obstruction (09/01/23) Surgery Performed Operation Date: 09/03/23 15:00 Actual Procedures p Exploratory laparotomy with diverting colostomy and lysis of adhesions, takedown of splenic flexure - Heather Flores MD Physical Therapy Inpatient Evaluation/Re-Eval M1 PT/OT-IP Prior Functional Status Start: 09/05/23 18:48 Freq: NEEDED Status: Active Protocol: Document 09/05/23 15:20 AB (Rec: 09/05/23 19:03 AB [id number]) Medical Review Prior Functional Status Medical History Reviewed Yes Communication able to make needs known Mobility and Gait pt stated that she was independent with all mobilities and ambulation without AD Social History Household Members none Living Arrangements House Number of Floors (Floors) Two Floors Number of Stairs To Enter/Railing? 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 M2 PT-IP Current Condition Start: 09/05/23 18:48 Freq: NEEDED Status: Active Protocol: Document 09/05/23 15:20 AB (Rec: 09/05/23 19:03 [id number]) Physical Therapy Current Condition Current Condition Evaluation Date 09/05/23 Treatment Diagnosis s/p colostomy due to diverticulitis; difficulty in walking Onset Date 09/01/23 M3 PT-IP Subjective Start: 09/05/23 18:48 Freq: NEEDED Status: Active Protocol: Document 09/05/23 15:20 AB (Rec: 09/05/23 19:03 [id number]) Subjective Physical Therapy Visit Type Type Initial Evaluation Visit Start Time 15:20 Visit Stop Time 15:55 Number of PLANT TENDER Visits 0 Physical Therapy Visit Comments Patient Comments agreeable to do PT Therapy Pain Assessment Pain When Pain Assessed At Rest Pain Present Pain Present Pain Reported Location Abdomen Intensity 5 Scale Used Numeric (0 - 10) Pain Management Techniques Distraction,Modification of Treatment,Re-positioning, Timing of Activity with Medications M4 PT-IP Mobility and Gait Start: 06/26/24 18:48 Freq: NEEDED Status: Active Protocol: Document 09/05/23 15:20 AB (Rec: 09/05/23 19:03 AB [id number]) PT-Bed Mobility Assessment Rolling Type of Rolling Log Rolling Level of Assist Standby Assistance Supine to Sit Supine to Sit Standby Assistance Sit to Supine Sit to Supine Standby Assistance PT-Transfer Assessment Sit to and From Stand Sit to and from Stand Standby Assistance Equipment Transfer Assistive Device None,Gait Belt Orthotic/Prosthetic Devices or Brace: No Transfers Transfer Destination Bed,Chair Transfer Technique ambulated Transfer Ability Level of Assist Standby Assistance Comments Mobility Comments checked on pt and pt up and walking to window bench. pt agreed to do PT. pt sat on window bench. obtained PLOF and home set up from pt. post -op handout provided to pt and educated on abdominal precautions and log roll bed mobility. pt completed sit to stand SBA and ambulated in room without AD SBA. presents with antalgic gait but without LOB. pt sat on EOB and completed log roll sit<>supine SBA. pt agreed to ambulate out in the hallway and completed ~ 250 ft without AD SBA. pt completed up/down steps using R rail ascending SBA. pt ambulated back to her room without AD SBA. pt sat on the chair and positioned. call light and table placed within reach. informed pt regarding mobilizing and continue ambulating with nursing staff for long distance ambulation in the hallway as tolerated but can be independent in room . no further PT needs and pt agreed. informed nurse. Gait Assessment Gait Gait Assistance Required: Standby Assistance Distance (Feet) 250 Able to Maintain Weight Bearing Status Yes During Gait Assistive Devices Assistive Device None,Gait Belt Orthotic/Prosthetic Devices or Brace: No Gait Deviations General Gait Pattern Antalgic Factors Limiting Gait Function Factors Limiting Gait Function Decreased Activity Tolerance, Pain Stair Climbing Assessment Evaluation Level of Assist On Stairs Standby Assistance Devices Stair Climbing Assistive Devices Right Railing Technique/Endurance Stair Climbing Direction Ascend and Descend Stair Climbing Technique Step to Step Number of Steps Climbed 3 Query Text: Stair Climbing Set # Repetitions (reps) 3 PT-Balance Assessment Sitting Balance and Reactions Static Sitting Balance Ability Normal Dynamic Sitting Balance Ability Normal Standing Balance and Reactions Static Standing Balance Ability Normal Dynamic Standing Balance Ability Good Device Used without AD M5 PT-IP Objective Assessments Start: 09/05/23 18:48 Freq: NEEDED Status: Active Protocol: Document 09/05/23 15:20 AB (Rec: 09/05/23 19:03 AB [id number]) Orientation Orientation/Cognition Level of Alertness Alert Orientation Name,Age,Birthday,Month,Date, Year,Day of Week,Place, Situation Language Function Ability No Deficits Noted Safety Awareness Understands Safety Issues Memory Description No Deficits Noted Gross Range of Motion Lower Extremity ROM Assessment Within Functional Limits Strength Lower Extremity Strength Assessment Within Functional Limits Sensation Assessment Sensation Gross Sensation WNL Muscle Tone Muscle Tone WNL Yes M6 PT-IP Treatment Start: 09/05/23 18:48 Freq: NEEDED Status: Active Protocol: Document 09/05/23 15:20 AB (Rec: 09/05/23 19:03 AB [id number]) Physical Therapy Treatment Education Education Provided Precautions,Post-Op Packet, Safety M7 PT-IP Assessment and Plan Start: 09/05/23 18:48 Freq: NEEDED Status: Active Protocol: Document 09/05/23 15:20 AB (Rec: 09/05/23 19:03 AB [id number]) PT Summary Assessment and Plan Potential Rehabilitation Potential Good Status of Condition at Evaluation Stable Summary Impairments Pain,Strength,Bed Mobility, Transfers,Gait,Activity Tolerance Progress Towards Goals Safe For Discharge Assessment Summary pt with diverticulitis of large intestine with perforation and abscess and underwent colostomy POD 2. pt has abdominal precautions. pt requiring SBA with mobility for safety but can be independent with mobility in room. May require supervision for long distance ambulation in the hallway without AD for safety. pt plans to go home. pt lives alone but stated that her son lives just down the street and can assist her if needed. PT stanley completed and no further PT intervention indicated at this time. Nursing staff to continue ambulating with pt supervision for safety for long distance ambulation. Frequency of Treatment Frequency Of Treatment Discharge Treatment Plan Physical Therapy Treatment Plan Bed Mobility Training,Transfer Training,Gait Training, Therapeutic Exercise,Balance Retraining,Post Op Education, Discharge Planning,Hot or Cold Pack,Neuromuscular Re-ed, Coordination Retraining,Manual Therapy Precautions Abdominal Surgery Precautions Log Roll,Lifting Restrictions, Gait Belt above Incisional Area Recommendations To Nursing Amount of Assist Needed Standby Assistance Discharge Recommendations PT Discharge Recommendations Home Transportation Needs at Discharge Private Vehicle
--- NOTE | 2023-09-05 16:02 | CM.DPNOTE ---
DCP Note EMAIL DEVELOPER reviewed EMR. Per surgeon, hopeful for HH. Per RN, teaching planned for today for new ostomy bag. May dc home tomorrow? OSMAR Hanson kindly sent ref information to [facility] for review (pt lives on [address]) EMAIL DEVELOPER met with pt in room. Pt reports unsure about HH. Pt not established with PCP at this time, was trying to see Robina Villalobos/Shanell here at . No SOC yet. EMAIL DEVELOPER spoke with Heidi from [place]. Due to no established PCP, [facility] unable to accept. Will keep referral on hold and after established with PCP if pt still wants, they will be able to accept then. EMAIL DEVELOPER updated pt about not being able to start with HH until PCP. Pt was getting training from WC nurse at the time. Pt and WC nurse agree she'll likely be able to manage it at home and will f/u with new pt appointment with Shanell here at a week or so after dc. P: home with dtr when medically stable. Close OP f/u recommended. CM team will continue to follow as needed. DANITA Martínez
[2023-09-06] VITALS (7 sets, daily range): BP systolic 99–128; BP diastolic 47–72; PULSE 69–85; RESP 16–19; TEMP 35.6–36.5; O2SAT 93–98
[2023-09-06] MEDS: IBUPROFEN 600 MG TABLET PO ×2 (03:06→13:40)
[2023-09-06] MEDS: ACETAMINOPHEN 325 MG TABLET 650 MG PO (03:06)
[2023-09-06] MEDS: OXYCODONE IR 5 MG TABLET PO ×4 (03:07→22:02)
--- NOTE | 2023-09-06 03:09 | PC.NURSE ---
patient awake and alert , patient stated that she was experiencing right sided abdominal pain 08/19. Stoma is receded and purple with minimal liquid outpt. Patient states concern that she is obstructed again. No nausea at this time. Patient is up and ambulating in sales . Medicated with Tylenol, Ibuprofen and Oxycodone 5 mg. Pt states that they willl decide today what to do and that one of the surgeons will be in today to examine her.
[2023-09-06] MEDS: PANTOPRAZOLE DR 20 MG TABLET PO (06:09)
[2023-09-06] MEDS: hydroCHLOROthiazide 25 MG TABLET 12.5 MG PO (09:38)
[2023-09-06] MEDS: lisinopriL 20 MG TABLET PO (09:38)
[2023-09-06] MEDS: CELECOXIB 200 MG CAPSULE PO ×2 (09:38→21:13)
[2023-09-06 10:30] LABS: Add Manual Diff / Slide Review NO; Basophils Absolute Auto 100 /uL (0-100); Basophils Percent Auto 0.5 % (0-2); Eosinophils Absolute Auto 300 /uL (0-450); Eosinophils Percent Auto 1.9 % (2-4); Hematocrit 29.8 % (36-46); Hemoglobin 9.6 g/dL (12.0-16.0); Lymphocytes Absolute Auto 700 /uL (1100-4500); Lymphocytes Percent Auto 3.9 % (25-40); Mean Corpuscular HGB Conc 32.3 % (30-36); Mean Corpuscular Hemoglobin 26.9 PG (26-34); Mean Corpuscular Volume 83.3 fL (80-100); Monocytes Absolute Auto 500 /uL (0-900); Monocytes Percent Auto 3.1 % (3-14); Neutrophils Absolute Auto 15700 /uL (1500-7000); Neutrophils Percent Auto 90.6 % (50-75); Platelet Count 338 X10^3/uL (150-400); Red Blood Cell Count 3.58 X10^6/uL (4.0-5.2); Red Cell Distribution Width 14.3 % (11.6-14.8); White Blood Cell Count 17.3 X10^3/uL (4.5-11.0)
--- NOTE | 2023-09-06 13:56 | CM.DPC ---
DCP Cont. Reviewed EMR and team rounds for status updates. Pt's stoma does not look good, surgery is going to examine her later this afternoon to determine if they need to take her back to the OR to adjust it, this will likely need to happen. Monitor for new anticipated d/c date.
--- NOTE | 2023-09-06 17:41 | PC.NURSE ---
Pt states she is having more discomfort in her abdomen on her RLQ especially when moving around. Abdomen appears more distended with decreased bowel tones, serosanguinous drainage present in ostomy bag-quantity unchanged from this morning and stoma appears more recessed, opening is smaller and darker. Will contact Dr. Todd to make him aware.
[2023-09-06] MEDS: SIMETHICONE 80 MG TABLET PO ×2 (18:08→21:13)
--- NOTE | 2023-09-06 20:04 | PM.PNPO.1 ---
Subjective Subjective Date Patient Seen: 09/06/23 Time Patient Seen: 20:24 Interval history: Worsening clinical status over the past 24-48 hours. Minimal output from colostomy with worsening abdominal pain. Exam Vital Signs (past 8 hours): - 09/06/23 16:00 Temperature 97.1 F L Pulse Rate 80 Respiratory Rate 16 Blood Pressure 114/62 Pulse Oximetry 96 Oxygen Flow Rate 0 Fraction of Inspired Oxygen 24 SaO2/FiO2 Ratio 342 Oxygen Delivery Method Room Air Oxygen Flow Rate 0 Narrative Exam Narrative: General adult woman alert oriented uncomfortable. Abdomen colostomy necrotic with scant drainage no stool abdomen tender but without peritonitis Objective Labs 09/06/23 10:16 09/04/23 04:35 Labs: Laboratory Results - last 24 hr 09/06/23 10:16 WBC 17.3 H RBC 3.58 L Hgb 9.6 L Hct 29.8 L MCV 83.3 MCH 26.9 MCHC 32.3 RDW 14.3 Plt Count 338 Neut % (Auto) 90.6 H Lymph % (Auto) 3.9 L [place] % (Auto) 3.1 Eos % (Auto) 1.9 L Baso % (Auto) 0.5 Neut # (Auto) 32284 H Lymph # (Auto) 700 L [place] # (Auto) 500 Eos # (Auto) 300 Baso # (Auto) 100 PFSH Social History household members: none Smoking Status: Never smoker alcohol intake: former Assessment & Plan Post-op Postoperative Procedures: Procedures Operation Date: 09/03/23 15:00 Actual Procedure Side Surgeon p Exploratory laparotomy with diverting colostomy and lysis of adhesions, takedown of splenic flexure Heather Flores MD Operation Date: 09/07/23 11:15 <No data on this case meets the specified criteria> Postoperative status narrative: 53-year-old woman postoperative day 3 status post diverting colostomy for a colonic obstruction. Colostomy was initially productive and congested but over the past 24 hours has ceased production and become clearly necrotic. Plan is to return to the operating room tomorrow for exploratory laparotomy and revision of the colostomy. Overview of the operation was discussed with the patient. I explained that we would have to extend her incision in order to mobilize further colon and/or small-bowel for ostomy formation. -start Zosyn -NPO after midnight Quality VTE Deep Vein Thrombosis/Pulmonary Embolism Present on Admission: No
[2023-09-06] MEDS: MORPHINE 2 MG/ML INJ IV (20:26)
[2023-09-06] MEDS: ONDANSETRON 4 MG ODT PO (20:32)
[2023-09-06] MEDS: SODIUM CHLORIDE 0.9% 1,000 ML 125 ML IV (21:20)
[2023-09-06] MEDS: PIPERACILLIN/TAZO 3.375 GM in SODIUM CHLORIDE 0.9% 100 ML IV (21:54)
[2023-09-07] VITALS (17 sets, daily range): BP systolic 103–157; BP diastolic 55–100; PULSE 66–112; RESP 13–19; TEMP 35.8–36.9; O2SAT 88–99; BMI 31.4
--- NOTE | 2023-09-07 | PATH_ITS ---
[facility] Accession Number: [id number] No. of containers..01 Tissue . 01 Material submitted: . sigmoid colon - SIGMOID COLON, SEGMENTAL RESECTION . 01 Diagnosis: SIGMOID COLON, SEGMENTAL RESECTION: 1. Segment of colon with active serositis, and areas of active inflammation and dense foreign-body granulomatous type inflammation of the subserosa. 2. Diverticulosis. 3. Three benign reactive lymph nodes. See comment. . Specimen Comments: The surgical margins appear histologically viable on the traffic representative sections examined. Focal active inflammation of the serosa and subserosa is present on one of the margin sections. [facility] 09/11/2023 1603 Local . 01 Electronically signed: . Sonido Purcell MD, Pathologist NPI- [id number] . 01 Gross description: . Received in formalin with two identifiers and sigmoid colon, is an unoriented segment of colon 16.1 cm in length ranging from 3.9 x 5.4 cm in diameter. The serosa is dukes and roughened with a full thickness defect revealing mucosa measuring 1.3 x 1.0 cm and located 7.2 cm from the nearest blue-inked staple line. The opposite staple line is inked black, and the mesenteric margin is inked green. The remaining serosa is roughened with creeping fat and adherent dukes material consistent with exudate. The area of defect is inked orange. The lumen contains brown semi-solid to mucoid fecal material, and is narrowed centrally but remains probe patent. The mucosa is dukes and velvety with rios dusky areas located at the apex ranging from 0.3 to 0.5 cm in greatest dimension not grossly associated with distinct nodules. The folds are slightly edematous but otherwise unremarkable with no additional lesions identified. The davalos average 0.5 cm thick. Multiple diverticular measuring up to 1.2 cm deep filled with brown solidified fecal material. Palpation reveals three dukes lymph node candidates 0.2 to 0.3 cm in greatest dimension. Cable Armorer sections are submitted as follows: A1: Cable Armorer margins en face. A2: Area of defect. A3: Diverticula. A4-A5: Dusky and unremarkable mucosa. A6: Three intact lymph node candidates. ([id number]) /FELY 09/11/2023 1603 Local . 01 Pathologist provided ICD-10: K94.09 . 01 CPT . 190729 Specimen Comment: A courtesy copy of this report has been sent to [phone] Performed at: [address] [address], [place], [place] [id number] MD Sonido Purcell MD Phone: [phone]
[2023-09-07] MEDS: MORPHINE 2 MG/ML INJ IV ×5 (01:16→11:26)
[2023-09-07] MEDS: PANTOPRAZOLE DR 20 MG TABLET PO (05:43)
[2023-09-07] MEDS: ONDANSETRON 4 MG ODT PO ×2 (05:43→11:36)
[2023-09-07] MEDS: SODIUM CHLORIDE 0.9% 1,000 ML 125 ML IV (05:44)
[2023-09-07 05:46] LABS: Add Manual Diff / Slide Review NO; Basophils Absolute Auto 0 /uL (0-100); Basophils Percent Auto 0.2 % (0-2); Eosinophils Absolute Auto 300 /uL (0-450); Eosinophils Percent Auto 1.9 % (2-4); Hematocrit 29.7 % (36-46); Hemoglobin 9.7 g/dL (12.0-16.0); Lymphocytes Absolute Auto 600 /uL (1100-4500); Lymphocytes Percent Auto 4.7 % (25-40); Mean Corpuscular HGB Conc 32.7 % (30-36); Mean Corpuscular Hemoglobin 27.1 PG (26-34); Mean Corpuscular Volume 82.9 fL (80-100); Monocytes Absolute Auto 600 /uL (0-900); Monocytes Percent Auto 4.4 % (3-14); Neutrophils Absolute Auto 11700 /uL (1500-7000); Neutrophils Percent Auto 88.8 % (50-75); Platelet Count 379 X10^3/uL (150-400); Red Blood Cell Count 3.59 X10^6/uL (4.0-5.2); Red Cell Distribution Width 14.5 % (11.6-14.8); White Blood Cell Count 13.2 X10^3/uL (4.5-11.0)
[2023-09-07 06:03] LABS: BUN Creatinine Ratio 24.1 (6-22); Blood Urea Nitrogen 21 mg/dL (7-17); Calcium 7.7 mg/dL (8.4-10.2); Carbon Dioxide 26 mmol/L (22-32); Chloride 100 mmol/L (98-107); Estimated Glomerular Filt Rate > 60 mL/min (>60); Glucose 121 mg/dL (70-100); HEMOLYSIS < 15 (0-50); Potassium 3.6 mmol/L (3.4-5.1); Sodium 134 mmol/L (137-145)
[2023-09-07] MEDS: SODIUM CHLORIDE 0.9% FLUSH 10 ML IV ×3 (06:10→21:05)
--- NOTE | 2023-09-07 06:54 | PC.NURSE ---
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 Smelled of stomach acid and broth. Patient stated she felt that it was the broth from dinner last night. Patient stated she felt much better and had no complaints of nausea.
[2023-09-07] MEDS: LACTATED RINGERS 1,000 ML 42 ML IV (09:01)
--- NOTE | 2023-09-07 11:37 | PM.PREOP ---
Pre-operative Note Interval Note History & Physical reviewed/Exam performed by Physician: Yes Changes to H&P: No H&P completed within 30 days and has changed as indicated here:: Risks benefits alternatives to of the operation were discussed, however given the necrosis of her colostomy I think the only viable alternative is returned to the operating room for revision. She understands the operation carries significant risk including infection, hemorrhage, damage to surrounding structures, and rare but serious complications such as myocardial infarction stroke. She provides her consent to proceed.
[2023-09-07] MEDS: PIPERACILLIN/TAZO 3.375 GM in SODIUM CHLORIDE 0.9% 100 ML IV ×2 (12:55→21:05)
--- NOTE | 2023-09-07 13:20 | SUR.OPER ---
Supine on padded OR bed, head on pillow, arms secured on padded arm boards at <90 degrees abduction, legs uncrossed, safety belt at thigh, tape over blanket over lower legs.
--- NOTE | 2023-09-07 15:48 | P.OP_ITS ---
Operative Date/Time/Diagnoses Date of procedure: 09/07/23 Time of procedure: 15:48 Pre-op diagnosis: Necrotic colostomy Post-op diagnosis: same Procedure & Clinicians Procedure: Exploratory laparotomy Revision of colostomy Splenic flexure mobilization Sigmoid colectomy Application of negative pressure wound dressing Same procedure as scheduled: Yes Indications: Lynette is a 53-year-old woman who underwent an exploratory laparotomy with diverting distal colostomy for a obstructing colonic stricture. The colostomy was initially viable and productive however over the past 24-48 hours it has become dusky and now frankly necrotic. She is taken to the operating room today for exploratory laparotomy. Surgeon: Charlie Todd Radial Drill Press Operator For Plastic: Serafin Gibbs Anesthesia Type: General Operative Notes Findings: Necrotic colostomy Soft pliable rectum Viable revised colostomy Small Splenic capsular tear Specimen(s): other (Sigmoid colon) Estimated Blood Loss (mL): 100 Procedure in detail: Patient was brought to the operating room placed supine on the table. Bilateral lower extremity compression devices were applied. General anesthesia was induced she was intubated with an endotracheal tube. She received Zosyn. A Monroe catheter was sterilely placed. The midline jasiel were removed and then she was prepped and draped in sterile fashion. Colostomy was necrotic and could not be closed with suture. Time-out was performed. The abdomen was re-entered. We significantly extended the midline incision superiorly. The colostomy was brought back within the abdomen and we resected last several inches of the distal colon back to healthy bowel using THIERRY stapler. There was not enough laxity to bring this shortened distal colon back to the abdominal wall this is due to the shortened mesentery and the thickness of the abdominal wall. We completely mobilize the splenic flexure. The gastrocolic ligament was opened and we carried out the dissection of the gastrocolic ligament all the way to the splenic flexure. The gastro colic and renal colic ligaments were divided. We noted a small splenic capsular tear which was controlled with placement of Surgicel. Hemostasis was achieved. This complete mobilization allowed the colon to reach the abdominal wall without undue tension. Attention was then turned to the pelvis. The disease segment of colon had an initially been left within the pelvis given the degree of inflammation. Some of the inflammation had settled and using finger fracture I was able to dissect of the diseased sigmoid colon off of the pelvic sidewall and the small intestine. The left ureter was clearly visualized its identification confirmed by its vermiculation. Keeping the ureter posterior and out of harm's way the mesentery to the sigmoid colon was divided using the LigaSure. The colon was then divided using the contour stapler at the level of the rectosigmoid junction leaving a rather long rectal stalk which was soft and pliable. The rectal stump was marked with a 2-0 Prolene suture at its staple line for identification purposes. Placed a 19 Cameroonian Timothy drain within the pelvis near the rectal stump which was brought out through the right abdominal wall. The abdomen was then copiously lavaged in and the lavage returned clear hemostasis was checked once again. Tongue of omentum was placed over the rectal stump. The previous colostomy site contains some necrotic subcutaneous tissue and was very contaminated and therefore we debrided this back to healthy tissue. The anterior sheath at the prior colostomy site was then closed with PDS suture. A new colostomy site was selected on the left abdominal wall superior to the prior site. A circular incision was made in the skin, the subcutaneous tissue was divided exposing the fascia which was then divided in cruciate fashion to accommodate 2 fingers. The distal colon was then brought through the abdominal wall. The abdomen was then closed using running PDS suture to close the fascia. Given the highly contaminated nature of the case and her high potential for wound infection we placed a wound VAC into the subcutaneous tissue of the midline and then bridged it and extended it to the old colostomy site. The sponge and instrument count at the end of the case was correct. She received tap blocks bilaterally by anesthesia Service. She was then extubated and returned to the recovery room in stable condition. Complications: none Post-operative Condition: stable Disposition: Acute Care
--- NOTE | 2023-09-07 17:01 | PC.NURSE ---
Pt came up to ACU from PACU @ 1650. Pt alert and oriented x4, denies N/V or pain at this time, CLOTH FINISHING RANGE OPERATOR CHIEF reported bilateral tap blocks to abd, so pt is having less sensation in abd at this time. Midline incision is more extended than previous sx and wound vac applied, dressing CDI and running at [address] upon readmission back to floor and draining clear yellow. Timothy drain on RLQ, surrounding dressing CDI, draining seroussanguinous fluid. Colostomy in LLQ, as previous colostomy placed, but MD debrided previous stoma d/t necrotizing tissue, and new stoma is beefy and red. SCDs applied and pt trialed sipping water and alisson well. Son is at bedside. Will continue to monitor.
[2023-09-07] MEDS: OXYCODONE IR 5 MG TABLET PO (20:08)
[2023-09-07] MEDS: IBUPROFEN 600 MG TABLET PO (20:08)
[2023-09-07] MEDS: GABAPENTIN 300 MG CAPSULE PO (21:04)
[2023-09-07] MEDS: CELECOXIB 200 MG CAPSULE PO (21:04)
--- NOTE | 2023-09-07 23:34 | PC.NURSE ---
patient called this STATEMENT REQUEST CLERK in to the room because she was hearing her wound vac beep. Wound vac was not plugged in and it stated that it was low battery. When looking around the room for the power cord it was not in room. Reported to MOISES Torres and lithopone charger Lori. QMM was done, file number [id number]
[2023-09-08] VITALS (7 sets, daily range): BP systolic 91–111; BP diastolic 51–66; PULSE 74–91; RESP 15–18; TEMP 35.8–36.9; O2SAT 92–97
[2023-09-08] MEDS: OXYCODONE IR 5 MG TABLET PO ×4 (03:29→20:21)
[2023-09-08] MEDS: PIPERACILLIN/TAZO 3.375 GM in SODIUM CHLORIDE 0.9% 100 ML IV ×3 (05:08→20:20)
[2023-09-08] MEDS: SODIUM CHLORIDE 0.9% 250 ML 21 ML IV (05:09)
[2023-09-08] MEDS: SODIUM CHLORIDE 0.9% FLUSH 10 ML IV ×3 (05:10→20:21)
[2023-09-08] MEDS: PANTOPRAZOLE DR 20 MG TABLET PO (05:42)
[2023-09-08 05:46] LABS: Add Manual Diff / Slide Review NO; Basophils Absolute Auto 0 /uL (0-100); Basophils Percent Auto 0.1 % (0-2); Eosinophils Absolute Auto 0 /uL (0-450); Eosinophils Percent Auto 0.2 % (2-4); Hematocrit 29.5 % (36-46); Hemoglobin 9.9 g/dL (12.0-16.0); Lymphocytes Absolute Auto 600 /uL (1100-4500); Lymphocytes Percent Auto 6.2 % (25-40); Mean Corpuscular HGB Conc 33.5 % (30-36); Mean Corpuscular Hemoglobin 27.4 PG (26-34); Mean Corpuscular Volume 81.6 fL (80-100); Monocytes Absolute Auto 600 /uL (0-900); Monocytes Percent Auto 6.5 % (3-14); Neutrophils Absolute Auto 7700 /uL (1500-7000); Platelet Count 374 X10^3/uL (150-400); Red Blood Cell Count 3.61 X10^6/uL (4.0-5.2); Red Cell Distribution Width 14.2 % (11.6-14.8); White Blood Cell Count 8.9 X10^3/uL (4.5-11.0)
[2023-09-08 05:57] LABS: BUN Creatinine Ratio 22.5 (6-22); Blood Urea Nitrogen 23 mg/dL (7-17); Calcium 7.3 mg/dL (8.4-10.2); Carbon Dioxide 25 mmol/L (22-32); Chloride 103 mmol/L (98-107); Estimated Glomerular Filt Rate > 60 mL/min (>60); Glucose 131 mg/dL (70-100); HEMOLYSIS < 15 (0-50); Potassium 4.2 mmol/L (3.4-5.1); Sodium 131 mmol/L (137-145)
[2023-09-08] MEDS: IBUPROFEN 600 MG TABLET PO (08:09)
[2023-09-08] MEDS: CELECOXIB 200 MG CAPSULE PO ×2 (08:09→20:21)
--- NOTE | 2023-09-08 10:40 | CM.DPC ---
Addendum entered by Kailey Thompson R.N. 09/08/23 14:18: Faxed over Apr[facility] form to [facility], but Dr. Todd needs to complete page 3, and sign. Called Dr. Todd, he will sign in the am, page 3 of form is in red chart, he is aware, nurse Melissa is aware as well. Ben had called patient and indicated that they could not deliver until Sunday, but nurse, Melissa, had spoke to them and let them know patient needs by Sunday, for anticipated discharge. Called Candace at [facility], indicated that surgery can follow patients, but not sure if they have the staff for [facility], will know for sure by tomorrow when Heidi is back. Will go ahead and fax referral, face to face, orders, completed. Will also fax over to [facility] wound clinic. Original Note: DCP Cont: Spoke to Dr. Todd, indicated that patient now has her new ostomy and has a wound vac in place. She will need to have a wound vac placed at discharge, which is changed every three days. Patient is not established with a primary care provider as of yet. Dr. Todd did state that he would follw her for home health needs, until she gets established with a primary care provider. Sent an email to Heidi Gutierrez at [facility], to confirm that this would be an option. Was able to call [facility]. They are the vendor that serves [place]. Spoke to Chela at [facility], her phone number is: [phone]. Gave her patient information, she has opened an account with her. She will work on getting auth and wound vac to be delivered to her room. Nurse, Melissa, will help with the wound measurments. Left a message with the wound clinic next door as well. Updated patient, she is in good spirits. Let her know about the wound vac. Their fax number at [facility], is [phone]. P: DCP is working on home plan, wound vac ordered, will await form to fill out, and have an email out to Qing at [facility] to see if Dr. Todd can follow for now. Patient is working on getting established with CARLOTTA Verdugo at [facility]. Kailey Thompson RN/Dry Molder
--- NOTE | 2023-09-08 10:48 | PM.PNPO.1 ---
Subjective Subjective Date Patient Seen: 09/08/23 Time Patient Seen: 10:49 Interval history: Feeling well postoperative day 1 status post ex lap revision of colostomy and sigmoid colectomy. She has discomfort at the incision however the pain that she was having within the left abdominal wall and pelvis are resolving. Leukocytosis has resolved Exam Vital Signs (past 8 hours): - 09/08/23 04:00 09/08/23 07:00 09/08/23 09:00 Temperature 97.1 F L 97.6 F Pulse Rate 83 74 Respiratory Rate 17 15 Blood Pressure 103/66 91/64 Pulse Oximetry 93 96 Oxygen Delivery Method Room Air Oxygen Flow Rate 0 0 Fraction of Inspired Oxygen 24 SaO2/FiO2 Ratio 342 Oxygen Delivery Method Room Air Oxygen Flow Rate 0 Narrative Exam Narrative: General adult woman alert oriented no acute distress Abdomen soft appropriately tender. A midline wound VAC holding suction. Colostomy well perfused Objective Labs 09/08/23 05:20 09/08/23 05:20 Labs: Laboratory Results - last 24 hr 09/08/23 05:20 WBC 8.9 RBC 3.61 L Hgb 9.9 L Hct 29.5 L MCV 81.6 MCH 27.4 MCHC 33.5 RDW 14.2 Plt Count 374 Neut % (Auto) 87.0 H Lymph % (Auto) 6.2 L [place] % (Auto) 6.5 Eos % (Auto) 0.2 L Baso % (Auto) 0.1 Neut # (Auto) 7700 H Lymph # (Auto) 600 L [place] # (Auto) 600 Eos # (Auto) 0 Baso # (Auto) 0 Sodium 131 L Potassium 4.2 Chloride 103 Carbon Dioxide 25 BUN 23 H Creatinine 1.02 Estimated GFR > 60 BUN/Creatinine Ratio 22.5 H Glucose 131 H Calcium 7.3 L PFSH Social History household members: none Smoking Status: Never smoker alcohol intake: former Assessment & Plan Post-op Postoperative Procedures: Procedures Operation Date: 09/03/23 15:00 Actual Procedure Side Surgeon p Exploratory laparotomy with diverting colostomy and lysis of adhesions, takedown of splenic flexure Heather Flores MD Operation Date: 09/07/23 11:15 Actual Procedure Side Surgeon p Exploratory Laparotomy with revision of necrotic colostomy Charlie Todd MD Postoperative status narrative: Postoperative day 1 status post ex lap with revision of necrotic colostomy. Doing quite well today. -advance to regular diet -continue Zosyn for intra-abdominal infection antibiotic therapy for a total of 5 days we will convert to oral antibiotic tomorrow -wound VAC to continuous suction -continue colostomy teaching -surgical drains remain in place until discharge -anticipate discharge home SundaySeptember 09 with wound VAC and colostomy. -discharge planning for wound care anticipate wound VAC to remain for the next 2-3 weeks. -SCDs and prophylactic Lovenox. -remove Monroe catheter when able -PT/OT Quality VTE Deep Vein Thrombosis/Pulmonary Embolism Present on Admission: No
--- NOTE | 2023-09-08 15:20 | PT.IIE ---
Current Diagnoses Intestinal adhesions [bands], unspecified as to partial versus complete obstruction (09/01/23) Surgery Performed Operation Date: 09/03/23 15:00 Actual Procedures p Exploratory laparotomy with diverting colostomy and lysis of adhesions, takedown of splenic flexure - Heather Flores MD Operation Date: 09/07/23 11:15 Actual Procedures p Exploratory Laparotomy with revision of necrotic colostomy - Charlie Todd MD Physical Therapy Inpatient Evaluation/Re-Eval M1 PT/OT-IP Prior Functional Status Start: 09/05/23 18:48 Freq: NEEDED Status: Active Protocol: Document 09/08/23 15:20 AB (Rec: 09/08/23 17:28 AB [id number]) Medical Review Prior Functional Status Medical History Reviewed Yes Communication able to make needs known Mobility and Gait pt stated that she was independent with all mobilities and ambulation without AD Social History Household Members none Living Arrangements House Number of Floors (Floors) Two Floors Number of Stairs To Enter/Railing? 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 pt stated that she has her staff at work that can assist her if needed and her son who lives across the street can stay with her if needed M2 PT-IP Current Condition Start: 09/05/23 18:48 Freq: NEEDED Status: Active Protocol: Document 09/08/23 15:20 AB (Rec: 09/08/23 17:28 AB [id number]) Physical Therapy Current Condition Current Condition Evaluation Date 09/08/23 Treatment Diagnosis s/p colostomy revision; difficutly in walking Onset Date 09/01/23 M3 PT-IP Subjective Start: 09/05/23 18:48 Freq: NEEDED Status: Active Protocol: Document 09/08/23 15:20 AB (Rec: 09/08/23 17:28 AB [id number]) Subjective Physical Therapy Visit Type Type Initial Evaluation Visit Start Time 15:20 Visit Stop Time 15:55 Number of BUSINESS SERVICES MANAGER Visits 0 Physical Therapy Visit Comments Patient Comments agreeable to do PT Therapy Pain Assessment Pain When Pain Assessed At Rest Pain Present Pain Present Pain Reported Location Abdomen Scale Used pain scale not stated Pain Behaviors Guarding Pain Management Techniques Distraction,Modification of Treatment,Re-positioning, Timing of Activity with Medications M4 PT-IP Mobility and Gait Start: 09/05/23 18:48 Freq: NEEDED Status: Active Protocol: Document 09/08/23 15:20 AB (Rec: 09/08/23 17:28 AB [id number]) PT-Bed Mobility Assessment Rolling Type of Rolling Log Rolling Level of Assist Independent Supine to Sit Supine to Sit Standby Assistance PT-Transfer Assessment Sit to and From Stand Sit to and from Stand Contact Guard Assistance,1 Person Assistance,Use of Upper Extremities Equipment Transfer Assistive Device Gait Belt,Front Wheeled Walker Orthotic/Prosthetic Devices or Brace: No Transfers Transfer Destination Bed Transfer Ability Level of Assist Contact Guard Assistance,1 Person Assistance,Use of Upper Extremities Comments Mobility Comments pt supine in bed and agreeable to do PT. pt was just evaluated for PT 09/05/23 s/p colostomy and pt was doing well at that time and was able to ambulate without AD SBA only for safety and was d/c from PT at that time. pt underwent colostomy revision 09/07/23, thus the PT eval referral. pt currently has a new wound vac placement and ALIZE drain. pt aware of her abdominal precautions and log roll bed mobility. BP in supine: 104/53. pt completed supine to sit log roll SBA with use of bed rail. pt requiring increase time to complete task and presents with difficulty completing task. pt was able to sit on EOB SBA. BP checked: 99/54. pt does not c/o dizziness/ lightheadedness and wanting to get up and walk. completed sit to stand CGA and ambulated using FWW ~ 150 ft CGA. presents with slow paced gait and increase unsteadiness with ambulation towards the end of walking going back to her room. pt requested to go back to bed. completed sit to supine log roll SBA. BP checked: 96/50. positioned pt in bed. call light and table within reach. nurse of aware of low BP. encouraged pt to get up on the chair and walk with nursing staff as much as she can. pt understood and agreed. Gait Assessment Gait Gait Assistance Required: Contact Guard Assist Distance (Feet) 150 Able to Maintain Weight Bearing Status Yes During Gait Assistive Devices Assistive Device Gait Belt,Front Wheeled Walker Orthotic/Prosthetic Devices or Brace: No Gait Deviations General Gait Pattern Decreased Stride Length, Decreased Feet Clearance Factors Limiting Gait Function Factors Limiting Gait Function Decreased Activity Tolerance, Decreased Strength,Limited Range of Motion,Pain,Poor Balance PT-Balance Assessment Sitting Balance and Reactions Static Sitting Balance Ability Normal Dynamic Sitting Balance Ability Good Standing Balance and Reactions Static Standing Balance Ability Fair Dynamic Standing Balance Ability Fair Device Used FWW M5 PT-IP Objective Assessments Start: 09/05/23 18:48 Freq: NEEDED Status: Active Protocol: Document 09/08/23 15:20 AB (Rec: 09/08/23 17:28 AB [id number]) Orientation Orientation/Cognition Level of Alertness Alert Orientation Name,Age,Birthday,Month,Date, Year,Day of Week,Place, Situation Language Function Ability No Deficits Noted Safety Awareness Understands Safety Issues Memory Description No Deficits Noted Gross Range of Motion Lower Extremity ROM Assessment Within Functional Limits Strength Lower Extremity Strength Assessment Within Functional Limits Sensation Assessment Sensation Gross Sensation WNL Muscle Tone Muscle Tone WNL Yes M6 PT-IP Treatment Start: 09/05/23 18:48 Freq: NEEDED Status: Active Protocol: Document 09/08/23 15:20 AB (Rec: 09/08/23 17:28 AB [id number]) Physical Therapy Treatment Education Education Provided Precautions,Safety M7 PT-IP Assessment and Plan Start: 09/05/23 18:48 Freq: NEEDED Status: Active Protocol: Document 09/08/23 15:20 AB (Rec: 09/08/23 17:28 AB [id number]) PT Summary Assessment and Plan Potential Rehabilitation Potential Good Status of Condition at Evaluation Evolving Summary Impairments Pain,ROM,Strength,Balance, Coordination,Sensation,Tone, Cognition,Bed Mobility, Transfers,Gait,Activity Tolerance Assessment Summary pt is a 53 y/o F with diverticulitis and underwent colostomy 09/03/23. PT evaluated pt 09/05/23 and was doing well with mobility at that time and was d/c'd from PT at that time. pt underwent colostomy revision 09/07/23 received new PT eval order. Pt requiring min A with mobility using FWW and will benefit from PT here in the hospital to improve overall strength and mobility independence. d/c plan is home with assist and pt stated that her son can stay with her if needed to assist. Goals Bed Mobility Goal Independent Transfer Goal Independent,Front Wheeled Walker Gait Goal Independent,Front Wheel Walker Gait Distance 300 Other Goals improve transfers and ambulation using LRAD/without AD > 300 ft mod I up/down 1 flight of steps R rail ascending mod I Days to Meet Goals 10 Frequency of Treatment Frequency Of Treatment Once a Day Treatment Plan Physical Therapy Treatment Plan Bed Mobility Training,Transfer Training,Gait Training, Therapeutic Exercise,Balance Retraining,Post Op Education, Discharge Planning,Hot or Cold Pack,Neuromuscular Re-ed, Coordination Retraining,Manual Therapy Precautions Abdominal Surgery Precautions Log Roll,Lifting Restrictions, Gait Belt above Incisional Area Recommendations To Nursing Amount of Assist Needed 1 Person Assist Discharge Recommendations PT Discharge Recommendations Home with Assistance Transportation Needs at Discharge Private Vehicle
[2023-09-08] MEDS: MORPHINE 2 MG/ML INJ IV ×2 (17:47→20:59)
[2023-09-08] MEDS: GABAPENTIN 300 MG CAPSULE PO (20:21)
[2023-09-08] MEDS: SIMETHICONE 80 MG TABLET PO (20:21)
[2023-09-09] MEDS: OXYCODONE IR 5 MG TABLET PO ×6 (00:11→20:55)
[2023-09-09] MEDS: ACETAMINOPHEN 325 MG TABLET 650 MG PO ×2 (00:12→12:21)
[2023-09-09 04:30] VITALS: BP 116/68; PULSE 87; RESP 19; TEMP 36.6; O2SAT 92
[2023-09-09] MEDS: PIPERACILLIN/TAZO 3.375 GM in SODIUM CHLORIDE 0.9% 100 ML IV ×3 (05:29→20:56)
[2023-09-09] MEDS: SIMETHICONE 80 MG TABLET PO (05:29)
[2023-09-09] MEDS: PANTOPRAZOLE DR 20 MG TABLET PO (05:29)
[2023-09-09] MEDS: MORPHINE 2 MG/ML INJ IV (05:30)
[2023-09-09 07:52] VITALS: BP 110/74; PULSE 82; RESP 16; TEMP 36.4; O2SAT 96
[2023-09-09] MEDS: ENOXAPARIN 40 MG/0.4 ML SYRINGE SUBCUT (08:24)
[2023-09-09] MEDS: CELECOXIB 200 MG CAPSULE PO ×2 (08:24→20:58)
[2023-09-09] MEDS: SODIUM CHLORIDE 0.9% FLUSH 10 ML IV ×2 (08:28→20:55)
--- NOTE | 2023-09-09 10:36 | PM.PNPO.1 ---
Subjective Subjective Date Patient Seen: 09/09/23 Time Patient Seen: 10:36 Interval history: No major overnight events. Tolerant of diet and colostomy productive of air Ambulating well with physical therapy Exam Vital Signs (past 8 hours): - 09/09/23 04:30 09/09/23 07:52 Temperature 98 F 97.6 F Pulse Rate 87 82 Respiratory Rate 19 16 Blood Pressure 116/68 110/74 Pulse Oximetry 92 96 Oxygen Flow Rate 0 0 Fraction of Inspired Oxygen 24 SaO2/FiO2 Ratio 342 Oxygen Delivery Method Room Air Oxygen Flow Rate 0 Narrative Exam Narrative: General adult woman alert oriented no acute distress Abdomen midline incision with wound VAC in place. Colostomy viable well perfused bag filling with air. Abdominal drain with serosanguineous output Objective Labs 09/08/23 05:20 09/08/23 05:20 [facility] Social History household members: none Smoking Status: Never smoker alcohol intake: former Assessment & Plan Post-op Postoperative Procedures: Procedures Operation Date: 09/03/23 15:00 Actual Procedure Side Surgeon p Exploratory laparotomy with diverting colostomy and lysis of adhesions, takedown of splenic flexure Heather Flores MD Operation Date: 09/07/23 11:15 Actual Procedure Side Surgeon p Exploratory Laparotomy with revision of necrotic colostomy Charlie Todd MD Postoperative status narrative: Doing well postoperative day 2 status post ex lap and revision of colostomy. Planning for discharge home SundaySeptember 09 with wound VAC. Surgical drain within the pelvis with moderate amount of output over the past 24 hours as she continues to mobilize. We will re-evaluate tomorrow in terms of whether this is removed prior to her discharge. Remove Monroe catheter SCDs and Lovenox Regular diet Continue colostomy teaching Quality VTE Deep Vein Thrombosis/Pulmonary Embolism Present on Admission: No
[2023-09-09 11:26] VITALS: BP 106/68; PULSE 74; RESP 16; TEMP 36.1; O2SAT 95
--- NOTE | 2023-09-09 11:39 | PT-IP ANOTE ---
Pt has ambulated w/ nursing staff multiple times and would like to be d/c from PT. Pt states she has no further needs, will use FWW at home but only so that transporting wound vac is easier. Observed pt ambulating w/ COUNTY EXTENSION AGENT in hallway without fatigue and demonstrated good use of FWW and good balance. Pt has access to get FWW for home use.
--- NOTE | 2023-09-09 15:23 | CM.DPC ---
DCP Cont. Reviewed EMR and team rounds for status updates. Faxed signed portion of [employer] wound vac order to [facility]. Anticipate d/c on Sunday if the wound vac arrives on time for home d/c. Monitor closely.
[2023-09-09 16:00] VITALS: BP 121/69; PULSE 84; RESP 16; TEMP 36.3; O2SAT 94
[2023-09-09 19:45] VITALS: BP 120/70; PULSE 78; RESP 17; TEMP 36.4; O2SAT 99
[2023-09-09 23:31] VITALS: BP 128/76; PULSE 82; RESP 19; TEMP 35.9; O2SAT 95
[2023-09-10] MEDS: OXYCODONE IR 5 MG TABLET PO ×4 (02:23→20:53)
[2023-09-10 03:00] VITALS: BP 103/64; PULSE 83; RESP 20; TEMP 36.4; O2SAT 91
[2023-09-10] MEDS: PIPERACILLIN/TAZO 3.375 GM in SODIUM CHLORIDE 0.9% 100 ML IV (05:09)
[2023-09-10] MEDS: PANTOPRAZOLE DR 20 MG TABLET PO (05:09)
[2023-09-10 07:00] VITALS: BP 117/73; PULSE 69; RESP 20; TEMP 35.9; O2SAT 96
[2023-09-10] MEDS: CELECOXIB 200 MG CAPSULE PO ×2 (08:26→20:53)
[2023-09-10] MEDS: ACETAMINOPHEN 325 MG TABLET 650 MG PO (08:27)
[2023-09-10] MEDS: ENOXAPARIN 40 MG/0.4 ML SYRINGE SUBCUT (08:27)
[2023-09-10] MEDS: SODIUM CHLORIDE 0.9% FLUSH 10 ML IV ×2 (08:28→20:54)
--- NOTE | 2023-09-10 11:28 | DIET.CONS2 ---
Dietary Inpatient Consultation Note Admission Date: 09/01/2023 23:12 Nutrition f/u. Met with pt at bedside. She has questions regarding best tolerated foods and nutritional needs. Has been consuming eggs, cottage cheese, soup, and trying a few bites of foods she is hesitant about (i.e bread roll) first. Experiences early satiety, has been prioritizing protein based foods first. Addressed questions on food tolerance and fiber, discussed protein needs, provided handout, reviewed menu for dinner option. Encouraged protein based snacks while experiencing early satiety/prn, use of ONS, and adequate intakes as tolerated. Will monitor po intakes. F/u 3 days or prn. Diet: 09/08/23 Lunch Regular [General (Regular) Diet] Diet Modifications: Protein supplement with each meal Food Texture: Level 7 - Regular Liquid Consistency: Level 0 - Thin Nutrition Percent Meal Consumed 50% 09/10/23 10:21 Percent Meal Consumed water 09/10/23 06:20 Percent Meal Consumed 50% 09/09/23 18:13 Percent Meal Consumed 90% 09/08/23 18:19 Percent Meal Consumed 100% 09/08/23 13:07 Electronically Signed by: Rhiannon Burden 09/10/23 11:28 Clinical Dietitian [address] [id number]
--- NOTE | 2023-09-10 13:48 | CM.DPC ---
DCP Continued Reviewed EMR and team rounds for pt?s medical status. Wound Vac: DCP called [facility] and confirmed that they delivered wound vac, pt awaiting surgeon to replace hospital wound vac. Per Wound Clinic RN, they are not able to perform the switch until pt is an established wound clinic pt. Wound Clinic: Pt has a follow up appointment for ostomy care/teaching with MOISES Guerrero on Sunday, 09/11 at 9:00am, requesting pt check in at 8:30am. Home Health: DCP spoke with Heidi at [facility]. Confirmed pt does not have intentions of returning to work and will be home bound during recovery. Relayed that pt lives alone but has home support with son, who lives down the road and can be available for teaching. [facility] is the only provider who services [facility] and they only go to the [place] 2x/week. Pt's wound care orders are for 3x/week. Pt agreeable that if [facility] is able to provide services 2x/week, pt son or neighbor can help support other day. DCP also relayed that pt now has a PCP. [facility] confirmed acceptance and will follow up with pt for scheduling. PCP: DCP called [facility] per pt request and confirmed that she is an established pt of CARLOTTA Strauss. Pt has a first appointment on 09/19 at 2:45pm. Discharge: DCP entered room, introduced self and role. Pt endorsed feeling uneasy with discharge today as she is worried about not having the proper ostomy teaching as well as ferry transport to the [place] so late in the afternoon. DCP validated pt's feelings with reflective listening and encouraged pt to relay this to surgeon when they are able to see pt this afternoon. Pt explained she has a lot of support in family and friends on [facility]. DCP discussed this with MOISES Torres RN stated she will continually empower pt with teaching of ostomy bag care to the best of her abilities. Per RN, pt was prepared and eager to discharge last night and this morning. Plan: Anticipating pt to discharge this afternoon with family to transport, [facility] accepted for follow up care. CM Team will continue to follow for coordination of discharge plans. EMILE Montenegro
[2023-09-10 13:55] VITALS: PULSE 77; TEMP 36.6; O2SAT 97
--- NOTE | 2023-09-10 16:23 | P.PN_ITS ---
Subjective Subjective Date Patient Seen: 09/10/23 Time Patient Seen: 16:23 Interval history: had colostomy failure earlier today and significant anxiety with the possibility of going home. Exam Vital Signs (past 8 hours): - 09/10/23 13:55 Temperature 97.8 F Pulse Rate 77 Pulse Oximetry 97 Fraction of Inspired Oxygen 24 SaO2/FiO2 Ratio 342 Oxygen Delivery Method Room Air Oxygen Flow Rate 0 Narrative Exam Narrative: stoma looks great but edematous. However the application of wound vac under the stoma adhesive will be problematic for keeping a good stoma seal. Abdomen remains distended but benign. Objective Labs 09/08/23 05:20 09/08/23 05:20 [facility] Social History household members: none Smoking Status: Never smoker alcohol intake: former Assessment & Plan Post-op Postoperative Procedures: Procedures Operation Date: 09/03/23 15:00 Actual Procedure Side Surgeon p Exploratory laparotomy with diverting colostomy and lysis of adhesions, takedown of splenic flexure Heather Flores MD Operation Date: 09/07/23 11:15 Actual Procedure Side Surgeon p Exploratory Laparotomy with revision of necrotic colostomy Charlie Todd MD Postoperative status: doing well Postoperative status narrative: needs further teaching and a revision of the wound vac/stoma dressing. Postoperative plan narrative: Wound nurse called for teaching inpatient. Delay discharge til am. Quality VTE Deep Vein Thrombosis/Pulmonary Embolism Present on Admission: No
[2023-09-10 17:00] VITALS: BP 133/77; PULSE 75; RESP 14; TEMP 36.7; O2SAT 97
[2023-09-10 20:00] VITALS: BP 127/77; PULSE 74; RESP 18; TEMP 35.9; O2SAT 94
[2023-09-10] MEDS: AMOXICILLIN/CLAV 875/125 MG 1 TAB PO (20:53)
[2023-09-11] MEDS: OXYCODONE IR 5 MG TABLET PO ×2 (03:50→11:37)
[2023-09-11 04:00] VITALS: BP 127/84; PULSE 68; RESP 19; TEMP 35.9; O2SAT 97
[2023-09-11] MEDS: PANTOPRAZOLE DR 20 MG TABLET PO (05:04)
[2023-09-11 08:00] VITALS: BP 138/90; PULSE 77; RESP 18; TEMP 35.9; O2SAT 96
[2023-09-11] MEDS: ENOXAPARIN 40 MG/0.4 ML SYRINGE SUBCUT (09:00)
[2023-09-11] MEDS: AMOXICILLIN/CLAV 875/125 MG 1 TAB PO (09:00)
[2023-09-11] MEDS: CELECOXIB 200 MG CAPSULE PO (09:00)
[2023-09-11] MEDS: SODIUM CHLORIDE 0.9% FLUSH 10 ML IV (09:01)
--- NOTE | 2023-09-11 10:22 | CM.DPNOTE ---
Addendum entered by DANITA Martínez 09/11/23 15:33: DCP Continued Per chart review, pt discharged home with family support. MANAGER OF WAREHOUSE got notice from [facility] that [employer] auth is needed for OP Wound care. After investigation, this MANAGER OF WAREHOUSE found that there was an auth in place for the wound vac not the care itself. This MANAGER OF WAREHOUSE had previously believed all was set for authorizations for Pt to see OP and HH WC. Per Jefferson at [facility], options for numbers to call are either general number (p [phone] or f [phone] or f [phone]) or [facility] referral management center (p [phone] or f [phone]). MANAGER OF WAREHOUSE spoke with two referral folks at [facility]. Verbally reported necessary referral information. Able to get reference number for referral, working on expedited auth (reference number [id number]). MANAGER OF WAREHOUSE coordinated with Cristin and June from [facility]- updated them on reference number/referral process/pt's plans for [facility] to follow as well. From Heidi at [facility], earliest SOC is Saturday 09/16 for HH wound care. Confirm only able to do HH wound care twice per week and other WC needs in the week would need to be in the OP setting MANAGER OF WAREHOUSE spoke with Jennifer from [facility] (ext [phone]) report diagnosis code at K57.92 for referral purposes. P: home today with [facility] to follow, OP WC Care at the clinic, PCP appt 09/20/23. CM team will continue to follow as needed. DANITA Martínez Original Note: DCP Note MANAGER OF WAREHOUSE reviewed EMR. Per chart review/RN, pt cleared to dc home toda once wound vac in place. Wound Vac: Per Cristin at [facility]/RN, wound care nurse scheduled to come to floor at 11:30am today to place wound vac. Wound Care: F/u with OP appointment is tomorrow 09/12/23 at 0900. Request Check in at 0830 or 0845 if pt completes intake ppwk ahead of time ( RN to bring ppwk with wound vac placement) [facility]: From Heidi at [facility], good to accept pt with Dr. Todd agreeing to follow orders until she establishes with PCP Robina North 09/20/23. MANAGER OF WAREHOUSE emailed Heidi f2f and orders. Heidi reports they can do WC 2x/week and will prioritize getting her scheduled for Sunday but is concerned about it being the holiday weekend. Suggests maybe f/u with OP for WC sunday and they will have SOC Sunday? Heidi to call back once coordinated with her scheduling team. PCP: SOC appt 09/19 with Robina North at [facility]. MANAGER OF WAREHOUSE met with pt in room and discussed the above. Pt reports understanding and agreement with plan. Pt eager and hopeful to dc this afternoon. MANAGER OF WAREHOUSE spoke with Dr. Flores via phone at approx 0940- on way in and will complete dc orders. P: anticipate dc home this afternoon with son to transport. [facility] will f/u for insurance healthcare consultant and ostomy bag care needs. F/u with OP Wound care Sunday. f/u with new PCP next week. CM team will continue to follow closely. DANITA Martínez
--- NOTE | 2023-09-11 10:29 | P.PN_ITS ---
Subjective Subjective Date Patient Seen: 09/11/23 Interval history: doing well. Wound clinic appointment rearranged to today then home from there. Exam Vital Signs (past 8 hours): - 09/11/23 04:00 09/11/23 08:00 Temperature 96.6 F L 96.7 F L Pulse Rate 68 77 Respiratory Rate 19 18 Blood Pressure 127/84 138/90 Pulse Oximetry 97 96 Oxygen Flow Rate 0 0 Fraction of Inspired Oxygen 24 SaO2/FiO2 Ratio 342 Oxygen Delivery Method Room Air Oxygen Flow Rate 0 Narrative Exam Narrative: abdomen unchanged. Objective Labs 09/08/23 05:20 09/08/23 05:20 [facility] Social History household members: none Smoking Status: Never smoker alcohol intake: former Assessment & Plan Post-op Postoperative Procedures: Procedures Operation Date: 09/03/23 15:00 Actual Procedure Side Surgeon p Exploratory laparotomy with diverting colostomy and lysis of adhesions, takedown of splenic flexure Heather Flores MD Operation Date: 09/07/23 11:15 Actual Procedure Side Surgeon p Exploratory Laparotomy with revision of necrotic colostomy Charlie Todd MD Postoperative status: doing well Postoperative plan: routine post-op care and discharge Quality VTE Deep Vein Thrombosis/Pulmonary Embolism Present on Admission: No
--- NOTE | 2023-09-11 10:30 | PM.DS.1 ---
History of Present Illness History of Present Illness Date Patient Seen: 09/11/23 Time Patient Seen: 10:30 Chief complaint: abd/colon issues Narrative: Readmitted for obstipation and persistent diverticulitis. I remain skeptical that the abscess in the pelvis that is unchanged could just be an ovarian cyst. No evidence of sepsis or infection aside from persistent changes inflammatory changes in a short segment if sigmoid colon c/w diverticulitis Discharge Providers Provider Date of admission: 09/01/23 23:12 Discharge Date: 09/11/23 Primary care physician: CARLOTTA Kimble Consults: 09/03/23 20:47 Consult to Inpatient Wound Care Nurse Routine Comment: Reason for consultation: new stoma, wound vac change Has provider been notified: Yes 09/05/23 13:23 Consult to Physical Therapy Evaluate & Treat Comment: Physician Instructions: Evaluate and Treat 09/08/23 10:54 Consult to Physical Therapy Evaluate & Treat Comment: Physician Instructions: Evaluate and Treat 09/08/23 14:16 Consult to Home Health Routine Comment: New colostomy and wound vac Reason For Exam: Home Health recreation facilities supervisor provider: Heather Flores MD Summary Hospital Course Discharge Diagnosis: Colonic obstruction related to diverticulitis no longer in infectious state. Underwent Xlap with diverting colostomy w/o resection. Stoma under the extreme circumstances Had to be revised due to ischemia. Second Xlap not only revised stoma, but removed the affected colon. The stoma site was relocated to a thinner area of abdomen and a wound vac was used for the midline wound instead of primary closure. Hospital Course: She has done well and will discharge with temporary colostomy and wound vac. Antibiotics will have run their course on discharge and not needed as outpatient. Drain removed prior to discharge. Status at Discharge Cognitive/behavioral status at discharge: at baseline, oriented Functional status at discharge: independent ambulation Overall status at discharge: patient is progressing back to baseline Time Spent with Patient Time spent: Less than 30 minutes Exam Vital Signs (past 8 hours): - 09/11/23 04:00 09/11/23 08:00 Temperature 96.6 F L 96.7 F L Pulse Rate 68 77 Respiratory Rate 19 18 Blood Pressure 127/84 138/90 Pulse Oximetry 97 96 Oxygen Flow Rate 0 0 Fraction of Inspired Oxygen 24 SaO2/FiO2 Ratio 342 Oxygen Delivery Method Room Air Oxygen Flow Rate 0 Objective Labs 09/08/23 05:20 09/08/23 05:20 PFSH Social History household members: none Smoking Status: Never smoker alcohol intake: former Discharge Plan Discharge Plan Patient Disposition: Home Nursing Discharge Comment: You are scheduled for an appointment with Wound Care tomorrow, SundaySeptember 11 at 9am, 8:45 check-in. Discharge orders & Medications Prescriptions: New celecoxib [Celebrex] 200 mg Capsule 200 mg PO BID Qty: 20 0RF gabapentin 300 mg Capsule 300 mg PO BEDTIME Qty: 30 0RF oxycodone 5 mg Tablet 5 mg PO Q6HR PRN (Reason: Pain, Moderate (4-6)) Qty: 30 0RF Continued lisinopril-hydrochlorothiazide 20-12.5 mg tablet 1 tab PO DAILY oxycodone 5 mg Tablet 5 mg PO 1-2XD PRN (Reason: Pain, Moderate (4-6)) Qty: 20 0RF Discontinued peg 3350-electrolytes [Golytely] 236-22.74-6.74 -5.86 gram recon soln 240 ml PO Q10M Qty: 4000 0RF Rx Instructions: until fecal effluent is clear Follow up/Referrals: Heather Flores MD [Physician] - 09/18/23 9:00 am (appt:09/17 @ 9:[address] Flores please check in at 8:45 ) Miscellaneous,DoctorMD [Non-Staff] - Robina Villalobos ARNP [Primary Care Provider] - Activity Restrictions/Additional Instructions: no heavy lifting greater than 15 lbs for 2 weeks Diet/Activity/Treatments Diet: Diet as Tolerated Skin/Wound/Dressing Care Report to your healthcare provider any signs of infection, such as:: chills, fever, night sweats, increased pain and unusual drainage Dressing: wound vac per wound care Visit Report/Discharge Packet Instructions: Colostomy / Ileostomy, [facility]: Wound Care Stand Alone Forms: Patient Portal/API, Surgery Discharge Discharge Data Primary Care Provider: Robina Villalobos VTE Deep Vein Thrombosis/Pulmonary Embolism Present on Admission: No
[2023-09-11] MEDS: ACETAMINOPHEN 325 MG TABLET 650 MG PO (11:37)
--- NOTE | 2023-09-11 13:21 | PC.NURSE ---
Discharge: Pt agreeable to discharge plan. Wound care contacted, arrived at 1130, wound RNs provided wound vac dressing change. ALIZE drain removed. Pt tolerated. IV discontinued. Pt dressed independently, able to void. Ostomy education discussed, pt to follow up with wound care with Tere MUNOZ RN tomorrow at 8:30am check-in. Pt sent with supplies to clean ostomy. Pt wheeled via w/c at approximately 1325.
== END 2023-09-11 13:25 | disposition home health service (06) | DRG 330 ==
LOC: ED 21:50 → AC 23:16
PROVIDERS: Surgery; Admitting Provider Surgery; Emergency Provider Emergency Medicine; PCP Internal Medicine; Referring Provider Emergency Medicine; Visit Provider Surgery
PROC: 0D1N0Z4 Bypass Sigmoid Colon to Cutaneous, Open Approach (ICD-10-PCS; CPT 49000; principal; 2023-09-03 15:00)
PROC: 0DBN0ZZ Excision of Sigmoid Colon, Open Approach (ICD-10-PCS; CPT 49000; principal; 2023-09-07 11:15)
DX: K56.50 Intestinal adhesions [bands], unspecified as to partial versus complete obstruction (principal); I96 Gangrene, not elsewhere classified; K57.32 Diverticulitis of large intestine without perforation or abscess without bleeding; I10 Essential (primary) hypertension
CPT/HCPCS: 36415; 74018; 74177; 80048; 80053; 81003; 81015; 82378; 83690; 85025; 94762; 96374; 96375; 97116; 97161; 97162; 97530; 99283; 99284; 99285; J0136; J0690; J1100; J1170; J1650; J1885; J2270; J2405; J2543; J2704; J3010; Q9967

== ENCOUNTER → 2023-09-12 08:39 | Outpatient (CLI) | payer OTHER, SELFPAY ==
[2023-09-01 23:32] VITALS: BMI 31.1
== END ==
PROVIDERS: Family Provider Internal Medicine; PCP Internal Medicine; Referring Provider Surgery; Visit Provider Surgery
DX: T81.89XA Other complications of procedures, not elsewhere classified, initial encounter (principal); S31.109A Unspecified open wound of abdominal wall, unspecified quadrant without penetration into peritoneal cavity, initial encounter; S31.101A Unspecified open wound of abdominal wall, left upper quadrant without penetration into peritoneal cavity, initial encounter; L98.8 Other specified disorders of the skin and subcutaneous tissue; Z93.3 Colostomy status; Z43.3 Encounter for attention to colostomy; I10 Essential (primary) hypertension
CPT/HCPCS: 11042; 11045; 97606; 99204; 99214

== ENCOUNTER → 2023-09-17 14:41 | Outpatient (CLI) | payer OTHER, SELFPAY ==
[2023-09-01 23:32] VITALS: BMI 31.1
== END ==
PROVIDERS: Family Provider Internal Medicine; PCP Internal Medicine; Referring Provider Internal Medicine; Visit Provider Surgery
DX: T81.89XA Other complications of procedures, not elsewhere classified, initial encounter (principal); S31.109A Unspecified open wound of abdominal wall, unspecified quadrant without penetration into peritoneal cavity, initial encounter; L98.8 Other specified disorders of the skin and subcutaneous tissue
CPT/HCPCS: 97606

== ENCOUNTER → 2023-09-19 13:41 | Outpatient (CLI) | payer OTHER, SELFPAY ==
[2023-09-01 23:32] VITALS: BMI 31.1
== END ==
PROVIDERS: Family Provider Internal Medicine; PCP Internal Medicine; Referring Provider Surgery; Visit Provider Surgery
DX: Z43.3 Encounter for attention to colostomy (principal); S31.109A Unspecified open wound of abdominal wall, unspecified quadrant without penetration into peritoneal cavity, initial encounter; S31.101A Unspecified open wound of abdominal wall, left upper quadrant without penetration into peritoneal cavity, initial encounter; T81.89XA Other complications of procedures, not elsewhere classified, initial encounter; L98.8 Other specified disorders of the skin and subcutaneous tissue
CPT/HCPCS: 11042; 11045; 99213

== ENCOUNTER → 2023-09-24 09:15 | Outpatient (CLI) | payer OTHER, SELFPAY ==
[2023-09-01 23:32] VITALS: BMI 31.1
== END ==
PROVIDERS: Family Provider Internal Medicine; PCP Internal Medicine; Referring Provider Surgery; Visit Provider Surgery
DX: T81.89XA Other complications of procedures, not elsewhere classified, initial encounter (principal); S31.109A Unspecified open wound of abdominal wall, unspecified quadrant without penetration into peritoneal cavity, initial encounter; S31.101A Unspecified open wound of abdominal wall, left upper quadrant without penetration into peritoneal cavity, initial encounter; L98.8 Other specified disorders of the skin and subcutaneous tissue; Z43.3 Encounter for attention to colostomy
CPT/HCPCS: 97606

== ENCOUNTER → 2023-09-27 09:10 | Outpatient (CLI) | payer OTHER, SELFPAY ==
[2023-09-01 23:32] VITALS: BMI 31.1
== END ==
PROVIDERS: Family Provider Internal Medicine; PCP Internal Medicine; Referring Provider Surgery; Visit Provider Surgery
DX: Z43.3 Encounter for attention to colostomy (principal); T81.89XA Other complications of procedures, not elsewhere classified, initial encounter; S31.109A Unspecified open wound of abdominal wall, unspecified quadrant without penetration into peritoneal cavity, initial encounter; S31.104A Unspecified open wound of abdominal wall, left lower quadrant without penetration into peritoneal cavity, initial encounter; L98.8 Other specified disorders of the skin and subcutaneous tissue
CPT/HCPCS: 11042; 11045; 97606

== ENCOUNTER → 2023-10-01 10:15 | Outpatient (CLI) | payer OTHER, SELFPAY ==
[2023-09-01 23:32] VITALS: BMI 31.1
== END ==
LOC: WC 10:21
PROVIDERS: Family Provider Internal Medicine; PCP Internal Medicine; Referring Provider Surgery; Visit Provider Surgery
DX: T81.89XA Other complications of procedures, not elsewhere classified, initial encounter (principal); S31.109A Unspecified open wound of abdominal wall, unspecified quadrant without penetration into peritoneal cavity, initial encounter; S31.104A Unspecified open wound of abdominal wall, left lower quadrant without penetration into peritoneal cavity, initial encounter; L98.8 Other specified disorders of the skin and subcutaneous tissue; R21 Rash and other nonspecific skin eruption
CPT/HCPCS: 11042; 11045; 97606

== ENCOUNTER → 2023-10-04 09:17 | Outpatient (CLI) | payer OTHER, SELFPAY ==
[2023-09-01 23:32] VITALS: BMI 31.1
== END ==
LOC: WC 09:17
PROVIDERS: Family Provider Internal Medicine; PCP Internal Medicine; Referring Provider Surgery; Visit Provider Surgery
DX: T81.89XA Other complications of procedures, not elsewhere classified, initial encounter (principal); S31.104A Unspecified open wound of abdominal wall, left lower quadrant without penetration into peritoneal cavity, initial encounter; L98.8 Other specified disorders of the skin and subcutaneous tissue
CPT/HCPCS: 97606

== ENCOUNTER → 2023-10-08 08:45 | Outpatient (CLI) | payer OTHER, SELFPAY ==
[2023-09-01 23:32] VITALS: BMI 31.1
== END ==
LOC: WC 08:46
PROVIDERS: Family Provider Internal Medicine; PCP Internal Medicine; Referring Provider Surgery; Visit Provider Physician Assistant
DX: T81.89XA Other complications of procedures, not elsewhere classified, initial encounter (principal); S31.109A Unspecified open wound of abdominal wall, unspecified quadrant without penetration into peritoneal cavity, initial encounter; L98.8 Other specified disorders of the skin and subcutaneous tissue; R21 Rash and other nonspecific skin eruption
CPT/HCPCS: 11042; 11045; 87070; 87075; 87077; 87186; 87205; 97606; 99213

== ENCOUNTER → 2023-10-11 09:12 | Outpatient (CLI) | payer OTHER, SELFPAY ==
[2023-09-01 23:32] VITALS: BMI 31.1
== END ==
LOC: WC 09:12
PROVIDERS: Family Provider Internal Medicine; PCP Internal Medicine; Referring Provider Surgery; Visit Provider Nurse Practitioner Family
DX: T81.89XA Other complications of procedures, not elsewhere classified, initial encounter (principal); S31.109A Unspecified open wound of abdominal wall, unspecified quadrant without penetration into peritoneal cavity, initial encounter; S31.104A Unspecified open wound of abdominal wall, left lower quadrant without penetration into peritoneal cavity, initial encounter; L98.8 Other specified disorders of the skin and subcutaneous tissue
CPT/HCPCS: 97606

== ENCOUNTER → 2023-10-15 10:01 | Outpatient (CLI) | payer OTHER, SELFPAY ==
[2023-09-01 23:32] VITALS: BMI 31.1
== END ==
LOC: WC 10:02
PROVIDERS: Family Provider Internal Medicine; PCP Internal Medicine; Referring Provider Surgery; Visit Provider Surgery
DX: T81.89XA Other complications of procedures, not elsewhere classified, initial encounter (principal); S31.109A Unspecified open wound of abdominal wall, unspecified quadrant without penetration into peritoneal cavity, initial encounter; S31.104A Unspecified open wound of abdominal wall, left lower quadrant without penetration into peritoneal cavity, initial encounter; L98.8 Other specified disorders of the skin and subcutaneous tissue; R21 Rash and other nonspecific skin eruption
CPT/HCPCS: 97606

== ENCOUNTER → 2023-10-18 09:21 | Outpatient (CLI) | payer OTHER, SELFPAY ==
[2023-09-01 23:32] VITALS: BMI 31.1
== END ==
LOC: WC 09:25
PROVIDERS: Family Provider Internal Medicine; PCP Internal Medicine; Referring Provider Surgery; Visit Provider Surgery
DX: T81.89XA Other complications of procedures, not elsewhere classified, initial encounter (principal); S31.109A Unspecified open wound of abdominal wall, unspecified quadrant without penetration into peritoneal cavity, initial encounter; S31.104A Unspecified open wound of abdominal wall, left lower quadrant without penetration into peritoneal cavity, initial encounter; L98.8 Other specified disorders of the skin and subcutaneous tissue; R21 Rash and other nonspecific skin eruption; L53.9 Erythematous condition, unspecified; I10 Essential (primary) hypertension
CPT/HCPCS: 11042; 11045; 97605

== ENCOUNTER → 2023-10-24 08:43 | Outpatient (CLI) | payer OTHER, SELFPAY ==
[2023-09-01 23:32] VITALS: BMI 31.1
== END ==
LOC: WC 08:43
PROVIDERS: Family Provider Internal Medicine; PCP Internal Medicine; Referring Provider Surgery; Visit Provider Surgery
DX: T81.89XA Other complications of procedures, not elsewhere classified, initial encounter (principal); S31.109A Unspecified open wound of abdominal wall, unspecified quadrant without penetration into peritoneal cavity, initial encounter; S31.104A Unspecified open wound of abdominal wall, left lower quadrant without penetration into peritoneal cavity, initial encounter; R21 Rash and other nonspecific skin eruption; Z93.3 Colostomy status
CPT/HCPCS: 17250; 99213

== ENCOUNTER → 2023-10-31 09:37 | Outpatient (CLI) | payer OTHER, SELFPAY ==
[2023-09-01 23:32] VITALS: BMI 31.1
== END ==
LOC: WC 09:38
PROVIDERS: Family Provider Internal Medicine; PCP Internal Medicine; Referring Provider Surgery; Visit Provider Surgery
DX: T81.89XA Other complications of procedures, not elsewhere classified, initial encounter (principal); S31.109A Unspecified open wound of abdominal wall, unspecified quadrant without penetration into peritoneal cavity, initial encounter; S31.104A Unspecified open wound of abdominal wall, left lower quadrant without penetration into peritoneal cavity, initial encounter; L92.9 Granulomatous disorder of the skin and subcutaneous tissue, unspecified; L98.8 Other specified disorders of the skin and subcutaneous tissue; R21 Rash and other nonspecific skin eruption; L53.9 Erythematous condition, unspecified; Z93.3 Colostomy status
CPT/HCPCS: 17250; 99213

== ENCOUNTER → 2023-11-07 10:10 | Outpatient (CLI) | payer OTHER, SELFPAY ==
[2023-09-01 23:32] VITALS: BMI 31.1
== END ==
PROVIDERS: Family Provider Internal Medicine; PCP Internal Medicine; Referring Provider Surgery; Visit Provider Surgery
DX: T81.89XA Other complications of procedures, not elsewhere classified, initial encounter (principal); S31.109A Unspecified open wound of abdominal wall, unspecified quadrant without penetration into peritoneal cavity, initial encounter; S31.104A Unspecified open wound of abdominal wall, left lower quadrant without penetration into peritoneal cavity, initial encounter; L98.8 Other specified disorders of the skin and subcutaneous tissue; L92.9 Granulomatous disorder of the skin and subcutaneous tissue, unspecified; L53.9 Erythematous condition, unspecified
CPT/HCPCS: 17250; 99213

== ENCOUNTER → 2023-11-21 11:02 | Outpatient (CLI) | payer OTHER, SELFPAY ==
[2023-09-01 23:32] VITALS: BMI 31.1
== END ==
PROVIDERS: Family Provider Internal Medicine; PCP Internal Medicine; Referring Provider Surgery; Visit Provider Surgery
DX: T81.89XD Other complications of procedures, not elsewhere classified, subsequent encounter (principal); S31.109D Unspecified open wound of abdominal wall, unspecified quadrant without penetration into peritoneal cavity, subsequent encounter; S31.104D Unspecified open wound of abdominal wall, left lower quadrant without penetration into peritoneal cavity, subsequent encounter
CPT/HCPCS: 99211; 99213

== ENCOUNTER → 2024-05-30 11:57 | Outpatient (ROUT) | payer OTHER, SELFPAY ==
[2023-09-01 23:32] VITALS: BMI 31.1
[2024-05-30 12:20] LABS: Alanine Aminotransferase 22 IU/L (<35); Albumin 4.9 g/dL (3.5-5.0); Albumin Globulin Ratio 1.5 (1.0-2.8); Alkaline Phosphatase 52 U/L (38-126); Aspartate Aminotransferase 27 IU/L (14-36); BUN Creatinine Ratio 28.4 (6-22); Bilirubin Total 0.7 mg/dL (0.2-1.3); Blood Urea Nitrogen 23 mg/dL (7-17); Calcium 9.6 mg/dL (8.4-10.2); Carbon Dioxide 23 mmol/L (22-32); Chloride 104 mmol/L (98-107); Estimated Glomerular Filt Rate > 60 mL/min (>60); Globulin 3.3 g/dL (1.7-4.1); Glucose 84 mg/dL (70-100); HEMOLYSIS 56 (0-50); Potassium 4.9 mmol/L (3.4-5.1); Sodium 139 mmol/L (137-145); Total Protein 8.2 g/dL (6.3-8.2)
== END ==
PROVIDERS: Family Provider Internal Medicine; PCP Internal Medicine; Visit Provider Registered Nurse
DX: I1A.0 Resistant hypertension (principal)
CPT/HCPCS: 80053